=== PATIENT | female | born 1940 | race Caucasian/White ===

== ENCOUNTER 2017-10-13 11:36 | Inpatient (IN) | payer MEDICARE, BC, SELFPAY ==
[2017-10-13] VITALS (7 sets, daily range): BP systolic 125–138; BP diastolic 70–80; PULSE 70–83; RESP 18–22; TEMP 36.8–37.6; O2SAT 97–100; BMI 18.7; BMI 20.7
--- NOTE | 2017-10-13 11:54 | ED.RN ---
PT REPORT PAIN TO HIP/PELVIC AREA. PT WAS CLEAN AND DRY WHEN FOUND ON FLOOR. STATES REMEMBERS GOING TO SLEEP IN HER BED. DOES NOT KNOW WHAT HAPPENED THIS AM. FOUND IN LIVING ROOM
--- NOTE | 2017-10-13 11:55 | RAD_ITS ---
STUDY: X-RAY CHEST REASON FOR EXAM: Female, 76 years old. Chest pain after fall. TECHNIQUE: Two AP portable views of the chest. COMPARISON: May 06, 2015. FINDINGS: Cardiac monitoring leads are present. The lungs are expanded but less expanded than was apparent on the previous study. Mild interstitial thickening is visible in both lungs. There is no demonstrated pleural abnormality. There is borderline cardiomegaly. Normal mediastinum and emily. Normal visualized pulmonary arteries. There is atherosclerotic calcification of the aortic arch with tortuosity. There is demineralization of the osseous structures. Normal visualized ribs, clavicles, and shoulders. There is no demonstrated abnormality of the visualized soft tissue structures of the upper abdomen. RAD/Chest 1 View (Portable) IMPRESSION: No radiographic evidence of acute cardiopulmonary disease. Electronically Signed: Sandy Whitlock MD at 13:57 EDT , Service support ,
--- NOTE | 2017-10-13 11:55 | RAD_ITS ---
STUDY: X-RAY - PELVIS AND LEFT HIP REASON FOR EXAM: Female, 76 years old. Left-sided hip pain after fall. TECHNIQUE: Radiological exam, hip, unilateral, with pelvis when performed; 2 or 3 views. COMPARISON: Prior comparison studies are not available for review at this time. FINDINGS: There is a non-specific bowel gas pattern. Clothing artifact is visible. There is diffuse demineralization of the osseous structures. The sacrum and iliac wings are obscured by bowel gas. There appear to be acute fractures of the left-sided superior and inferior pubic rami. Normal pubic symphysis. Normal bilateral ischial tuberosities. There are osteoarthritic changes of the femoral head with marginal osteophyte formation. Normal acetabulum. Normal hip joint. RAD/Hip 2-3 Views with Pelvis IMPRESSION: Acute fractures of left-sided superior and inferior pubic rami. Electronically Signed: Sandy Whitlock MD at 13:55 EDT , Service support ,
--- NOTE | 2017-10-13 11:55 | RAD_ITS ---
STUDY: X-RAY - LEFT SHOULDER REASON FOR EXAM: Female, 76 years old. Fall. Pain. TECHNIQUE: 2 view(s) of the shoulder. COMPARISON: None. FINDINGS: Normal glenohumeral articulation. There is degenerative arthrosis of the acromioclavicular joint without inferior osseous spur formation. Normal acromion. Normal humeral head and visualized proximal humerus. The soft tissue structures are unremarkable. There is no demonstrated fracture. Normal visualized pulmonary apex. RAD/Shoulder min 2 Views IMPRESSION: No fracture. Acromioclavicular spurring. Electronically Signed: Xander Pizarro MD at 14:15 EDT , Service support ,
--- NOTE | 2017-10-13 11:55 | CT_ITS ---
STUDY: CT BRAIN WITHOUT CONTRAST REASON FOR EXAM: Female, 76 years old. Found on floor. RADIATION DOSAGE (If Supplied By Facility): CTDIvol = ( 44.99 ) mGy, DLP = ( 745.49 ) mGycm TECHNIQUE: Transaxial CT imaging of the brain was performed without administration of intravenous contrast material. Multiplanar reformations are submitted for interpretation. Individualized dose optimization techniques were used for this CT. COMPARISON: CT of the head dated May 16, 2015. FINDINGS: Normal soft tissue structures. Normal calvarium. There is moderate cerebral atrophy with widening of the extra-axial spaces and ventricular dilatation. There are areas of decreased attenuation within the white matter tracts of the supratentorial brain, consistent with microvascular disease changes. Normal basal ganglia and thalami. Normal brainstem. There is mild cerebellar atrophy. There is no intracranial hemorrhage. There is mild atherosclerotic calcification of intracranial arteries. Normal visualized paranasal sinuses. CT/Brain/Head without Contrast IMPRESSION: 1. Chronic involutional changes of the brain. 2. No CT evidence of acute intracranial hemorrhage. Electronically Signed: Sandy Whitlock MD at 13:52 EDT , Service support ,
--- NOTE | 2017-10-13 11:55 | EKG12_ITS ---
Test Reason : FALL Blood Pressure : / mmHG Vent. Rate : 071 BPM Atrial Rate : 071 BPM P-R Int : 120 ms QRS Dur : 082 ms QT Int : 434 ms P-R-T Axes : 059 063 071 degrees QTc Int : 471 ms Normal sinus rhythm Left ventricular hypertrophy with repolarization abnormality Abnormal ECG Confirmed by VALENCIA DAMON, YULIET ([id number]), newspaper photo editor MILY NEVILLE ([id number]) on 10/16/2017 3:49:29 PM Referred By: JOSSIE Confirmed By:YULIET BIRMINGHAM MD
--- NOTE | 2017-10-13 11:56 | CT_ITS ---
STUDY: CT CERVICAL SPINE WITHOUT CONTRAST REASON FOR EXAM: Female, 76 years old. Patient found on floor. RADIATION DOSAGE (If Supplied By Facility): CTDIvol = ( 14.55 ) mGy, DLP = ( 287.98 ) mGycm TECHNIQUE: High resolution transaxial imaging was performed without contrast material. Sagittal and coronal images were reconstructed. Individualized dose optimization techniques were used for this CT. COMPARISON: None FINDINGS: Normal craniovertebral junction. There are degenerative changes of the anterior atlantoaxial articulation. Normal odontoid process. There is straightening of the normal cervical lordosis. The bones appear osteopenic. There is mild decreased height of the C4, C5 and C6 vertebral bodies probably related to mild old compression fractures. C2-3: Normal endplates. Normal disc height and morphology. Normal central canal and intervertebral neuroforamina. C3-4: Normal endplates. Normal disc height and morphology. Normal central canal and intervertebral neuroforamina. C4-5: There is mild anterolisthesis at this level. The disc has normal height. There is severe right-sided neural foraminal narrowing with moderate right-sided facet joint arthropathy. The left neural foramen is patent. There is no significant central acquired canal stenosis. C5-6: There is severe narrowing of the disc space with eburnation of endplates. No foramina are mildly narrowed. There is no significant central acquired canal stenosis. C6-7: Normal endplates. Normal disc height and morphology. Normal central canal and intervertebral neuroforamina. C7-T1: Normal endplates. Normal disc height and morphology. Normal central canal and intervertebral neuroforamina. Visualized lung apices appear to be clear. Paraspinal soft tissues are within normal limits. CT/Spine Cervical without Contras IMPRESSION: 1. No CT evidence of acute compression or displaced fracture cervical spine. 2. Multilevel degenerative disc disease and degenerative arthropathy of the cervical spine, as described. 3. Possible mild old compression fractures of C4, C5 and C6. Electronically Signed: Sandy Whitlock MD at 13:21 EDT , Service support ,
--- NOTE | 2017-10-13 11:59 | ED.VISSUMM ---
- ER Visit Summary Date of Service: 10/13/17 Chief Complaint: Found on floor History of Present Illness: The patient is a 76 F presents after her daughter found her on the floor. It is unknown when she fell. Patient has a history of dementia. She does not recall the fall. Her daughter checks on her daily, she lives alone. When her daughter went to check on her today she was found face down on the living room floor. She complains of left shoulder and left hip pain. EMS was called. She denies chest pain or shortness of breath. She is not on anticoagulants. Physical Examination: Vitals are stable. Patient is afebrile. Alert no acute distress. HEENT exam is unremarkable. No evidence of head trauma Neck is nontender Lungs are clear and equal bilaterally. Heart is regular rate and rhythm. Abdomen is soft nontender nondistended. Extremities left anterior shoulder tenderness with painful range of motion, left anterior hip tenderness with painful range of motion. Skin is warm and dry. No focal neurologic deficit. Alert and oriented ?2 Remainder of exam is unremarkable. Emergency Department Course and Treatment: Patient is given IV fluids, morphine, Zofran. CT head and neck show no acute process. Left hip x-ray shows superior/inferior rami fracture. Left shoulder x-ray shows no fracture. Chest x-ray shows no acute process. EKG is sinus rate is 71. CBC shows a white count of 15.9. Chemistries show sodium 131, potassium 3.3, glucose 110. Urinalysis unremarkable. Troponin 0.022. CK 498. Patient is resting comfortably on reevaluation. Discussed with Dr. Ocampo for admission. Disposition: Admission Impression: Left superior and inferior pubic rami fracture status post fall This note was generated with [employer] software. It may contain incorrect words, spelling, and punctuation that were not noted in review of the chart prior to signing ED Disposition - Plan for ED Patient: Chief Complaint: Fall Referrals: Tien Roldan MD [Primary Care Provider] -
--- NOTE | 2017-10-13 12:02 | ED.DCSUM_ITS ---
- ER Visit Summary Date of Service: 10/13/17 Chief Complaint: Found on floor History of Present Illness: The patient is a 76 F presents after her daughter found her on the floor. It is unknown when she fell. Patient has a history of dementia. She does not recall the fall. Her daughter checks on her daily, she lives alone. When her daughter went to check on her today she was found face down on the living room floor. She complains of left shoulder and left hip pain. EMS was called. She denies chest pain or shortness of breath. She is not on anticoagulants. Physical Examination: Vitals are stable. Patient is afebrile. Alert no acute distress. HEENT exam is unremarkable. No evidence of head trauma Neck is nontender Lungs are clear and equal bilaterally. Heart is regular rate and rhythm. Abdomen is soft nontender nondistended. Extremities left anterior shoulder tenderness with painful range of motion, left anterior hip tenderness with painful range of motion. Skin is warm and dry. No focal neurologic deficit. Alert and oriented ?2 Remainder of exam is unremarkable. Emergency Department Course and Treatment: Patient is given IV fluids, morphine , Zofran. CT head and neck show no acute process. Left hip x-ray shows superior/inferior rami fracture. Left shoulder x-ray shows no fracture. Chest x-ray shows no acute process. EKG is sinus rate is 71. CBC shows a white count of 15.9. Chemistries show sodium 131, potassium 3.3, glucose 110. Urinalysis unremarkable. Troponin 0.022. CK 498. Patient is resting comfortably on reevaluation. Discussed with Dr. Ocampo for admission. Disposition: Admission Impression: Left superior and inferior pubic rami fracture status post fall This note was generated with [employer] software. It may contain incorrect words, spelling, and punctuation that were not noted in review of the chart prior to signing ED Disposition - Plan for ED Patient: Chief Complaint: Fall Referrals: Tien Roldan MD [Primary Care Provider] -
[2017-10-13] MEDS: Morphine 2 MG/ML Syringe IV ×2 (12:15→14:14)
[2017-10-13] MEDS: Ondansetron 4 MG/2 ML Vial IV (12:15)
[2017-10-13 12:18] LABS: Anion Gap 10 (5-15); BUN 10 mg/dL (7-18); BUN/Creat Ratio 16.1 RATIO (10-20); CPK Total, Creatine Kinase 498 U/L (26-192); Calcium,Total 8.9 mg/dL (8.5-10.1); Chloride 100 mmol/L (98-107); Creatinine, Serum 0.62 mg/dL (0.55-1.02); EST Glomerular Filtration Rate 100 mL/min (>60); Est Glom Filt Rate - Afr Amer 120 mL/min (>60); Estimated Creatinine Clearance 42.82 ml/min; Glucose 110 mg/dL (74-106); Potassium 3.3 mmol/L (3.5-5.1); Sodium Level 131 mmol/L (136-145)
[2017-10-13 12:37] LABS: Absolute Lymphocyte Count 0.46 X10^3/ul (0.83-4.51); Absolute Neutrophil Count 14.4 X10^3/uL (2.0-7.7); Basophil# 0.01 X10^3/uL; Basophil% 0.1 % (0-1); Hematocrit 35.6 % (37-47); Hemoglobin 12.7 g/dl (12.0-15.0); Lymphocyte # 0.46 X10^3/ul (4.0); Lymphocyte % 2.9 % (19-41); Mean Corp Hgb Conc 35.7 g/gl (32-36); Mean Corpuscular Volume 89.7 fL (81-99); Mean Platelet Vol. 8.6 fl (6.2-12.0); Monocyte# 0.94 X10^3/uL; Monocyte% 5.9 % (0-10); Neutrophil # 14.36 X10^3/uL (2.7-7.7); Neutrophil % 90.6 % (47-70); Platelet Count 211 K/mm3 (150-450); RBC Distribution Width CV 12.2 % (11.6-14.6); RBC Distribution Width SD 39.7 fl (35.1-43.9); Red Blood Count 3.97 M/mm3 (4.2-5.4); White Blood Count 15.9 K/mm3 (4.4-11.0)
[2017-10-13 12:38] LABS: Differential Indicated SCAN CRITERIA MET; POSITIVE COUNT NO; POSITIVE DIFFERENTIAL YES; POSITIVE MORPHOLOGY NO
[2017-10-13 13:40] LABS: Bacteria 0 SEEN /hpf (None Seen); Mucous, Urine 0 SEEN /hpf (<or=2+); White Blood Cells 0 SEEN /hpf (0-5)
[2017-10-13 13:45] LABS: Color, Urine Yellow (Yellow); Glucose, Dipstick Normal (Normal); Ketone-Dipstick 50 mg/dl (Negative); Leukocyte Esterase-Dipstick Negative /ul (Negative); Nitrite-Dipstick Negative (Negative); Occult Blood-Urine 25 /ul (Negative); Protein-Dipstick 30 mg/dl (Negative); Specific Gravity, Urine 1.015 (1.002-1.030); Urine Bilirubin Dipstick Negative (Negative); Urine Clarity Sl. Cloudy (Clear); Urine Urobilinogen Normal (Normal)
[2017-10-13 13:52] LABS: Red Blood Cells-Urine 0-5 SEEN /hpf (0-5); Squamous Epithelial Cells - UA 0-5 SEEN /hpf (5-10)
--- NOTE | 2017-10-13 14:32 | HP.PCM_ITS ---
Problem List (1) Pelvic fracture Status: Acute Qualifiers: Encounter type: initial encounter Pelvic bone location: pubis Sublocation of pubis: other portion of pubis Fracture type: closed Laterality: left Qualified Code(s): S32.592A - Other specified fracture of left pubis, initial encounter for closed fracture (2) Hypertension Status: Chronic Qualifiers: Hypertension type: essential hypertension Qualified Code(s): I10 - Essential (primary) hypertension (3) Dementia Status: Chronic Qualifiers: Dementia type: unspecified type Dementia behavioral disturbance: with behavioral disturbance Qualified Code(s): F03.91 - Unspecified dementia with behavioral disturbance History of Present Illness Date of Admission: 10/13/17 Chief Complaint: Fall, pelvic and shoulder pain - 1 day The patient is a 76 year old F with past medical history of hypertension, dementia, lives alone, ambulates without assistance. Patient is said to be able to do her basic ADLs but dependent for IADLs. She is able to clean, bathe , do her laundry and clean the house. Her daughters set up a pillbox in a timed pill container which reminds her every day. Her daughters also take care of her bills. She does not drive. One of her daughter picks her up every morning to spend time in her house. She is usually oriented only to self. She does not know what day or time or year she is in. Her moods are controlled with Seroquel. She went over this morning to pick her up, and found her lying on the floor in the britton. Unsure how long she has been lying on the floor. Patient has no memory of what happened prior to that. Nothing is unusual in the britton. She saw her mother yesterday and there were no complaints. No diarrhea or dizziness or palpitations or chest pain or fever or chills recently. She called the EMS and patient was brought to the hospital. Vitals in the ED was stable. Admitting blood work was significant for leukocytosis, anemia, hyponatremia and hypokalemia. X-ray of the pelvis shows fracture of the left superior and inferior rami. Patient complains of pain in the shoulder, x-ray showed a show acromioclavicular spurring with degenerative changes. Past Medical History Past Medical History (Chronic Problems): Chronic Problems Hypertension (Chronic) Dementia (Chronic) Allergies No Known Allergies Allergy (Verified 10/13/17 11:45) Home Medications: Ambulatory Orders Medication Instructions Recorded Metoprolol Tartrate [Lopressor 50 mg PO DAILY 05/06/15 (Beta Usman)] Memantine HCl [Memantine HCl] 10 mg PO DAILY 10/13/17 Quetiapine Fumarate [Seroquel] 50 mg PO DAILY 10/13/17 Surgical History: no surgical history Psychiatric History: No pertinent psych hx [employer] History: No pertinent [employer] history Lives: Alone Smoking Status: Never smoker Alcohol: None Drugs: None - *Family History Maternal History Items: Dementia Paternal History Items: Unknown Review of Systems Constitutional: Reports: Weakness. Denies: Anorexia, Chills, Fever, Weight Change Eyes: Denies: Blurred vision, Cataracts, Conjunctivae Inflammation HEENT: Denies: Difficulty Hearing, Difficulty Swallowing, Head Aches, Hearing Changes, Sinus Congestion, Sinus Drainage, Sore Throat Cardiovascular: Denies: Chest Pain, Claudication, Chest Pressure, Orthopnea, Palpitations, Paroxysmal Noc. Dyspnea Respiratory: Denies: Cough, Hemoptysis, Pleuritic Pain, Shortness of breath at rest, Shortness of breath upon exertion, Sputum production Gastrointestinal: Denies: Abdominal Pain, Constipation, Nausea, Vomiting Genitourinary: Denies: Dysuria, Frequency Musculoskeletal: Denies: Joint Pain, Joint Tenderness Skin: Denies: Rash, Wounds Neurological: Denies: Numbness, Tingling, Focal weakness Psychiatric: Denies: Anxiety, Depression, Homicidal Ideations, Suicidal Ideations Hematologic/ Lymphatic: Denies: Easy Bruising, Easy Bleeding VTE Information - Inpt Only VTE Present on Admission: No VTE Pharm Prophylaxis ordered?: Yes Patient Problems: Active and Suspected Problems Pelvic fracture (Acute) - Physical Exam General: Alert, Cooperative, Confused, - - In pain, morning with her eyes closed , oriented only to self HEENT: Atraumatic, PERRLA, EOMI, Normocephalic Oral: Dry Mucosa Neck: Supple Lungs: Clear to auscultation, Normal air movement Cardiovascular: Regular rate, Regular Rhythm, Normal S1, Normal S2, No murmurs Abdomen: Bowel Sounds Present, Soft, Non Tender, Non-Distended, No Hepato- splenomegaly Extremities: No edema Skin: No rashes, No breakdown Musculoskeletal: Tenderness - Over the pelvic and left shoulder region. No bruises seen Lymphatic: No Cervical, Supraclavicular, or Inguinal Adenopathy Neurological: Cranial nerves II-XII grossly intact, Motor Exam 5/5 strength throughout Psych/Mental Status: Normal Affect, Appropriate Vital Signs Temp Pulse Resp BP Pulse Ox 98.2 F 83 22 H 138/71 H 97 10/13/17 11:37 10/13/17 14:26 10/13/17 14:26 10/13/17 14:26 10/13/17 14:26 Oxygen Delivery Method Room Air Weight: 55.8 kg Body Mass Index (BMI) 18.7 Laboratory Tests Past 24 Hrs 10/13/17 10/13/17 10/13/17 11:50 11:50 12:28 WBC Cancelled 15.9 H Corrected WBC Cancelled RBC Cancelled 3.97 L Hgb Cancelled 12.7 Hct Cancelled 35.6 L MCV Cancelled 89.7 MCH Cancelled 32.0 MCHC Cancelled 35.7 RDW Cancelled 12.2 RDW Differential Cancelled 39.7 Plt Count Cancelled 211 MPV Cancelled 8.6 Immature Gran % (Auto) Cancelled 0.500 Neut % (Auto) Cancelled 90.6 H Lymph % (Auto) Cancelled 2.9 L Schleicher % (Auto) Cancelled 5.9 Eos % (Auto) Cancelled 0.0 Baso % (Auto) Cancelled 0.1 Immature Gran # (Auto) Cancelled Absolute Neuts (auto) Cancelled 14.4 H Absolute Lymphs (auto) Cancelled 0.46 L Absolute Monos (auto) Cancelled Total Counted Cancelled Not Reportable Neutrophils % (Manual) Cancelled Band Neutrophils % Cancelled Lymphocytes % (Manual) Cancelled Monocytes % (Manual) Cancelled Eosinophils % (Manual) Cancelled Basophils % (Manual) Cancelled Metamyelocytes % Cancelled Myelocytes % Cancelled Promyelocytes % Cancelled Blast Cells % Cancelled Plasma Cell % (Manual) Cancelled Other Cells % Cancelled Lymphocytes # Cancelled Nucleated RBCs/100 WBC Cancelled Differential Comment Cancelled Diff Path Review Cancelled Hypersegmented Neuts Cancelled Atypical Lymphocytes Cancelled Reactive Lymphocytes Cancelled Smudge Cells Cancelled Eosinophilia # Cancelled Basophilia # Cancelled Toxic Granulation Cancelled Dohle Bodies Cancelled Carolyn Rods Cancelled Platelet Estimate Cancelled Plt Morphology Comment Cancelled RBC Morphology Cancelled Polychromasia Cancelled Hypochromasia Cancelled Poikilocytosis Cancelled Basophilic Stippling Cancelled Anisocytosis Cancelled Microcytosis Cancelled Macrocytosis Cancelled Spherocytes Cancelled Sickle Cells Cancelled Target Cells Cancelled Tear Drop Cells Cancelled Ovalocytes Cancelled Stomatocytes Cancelled Lombardo-[place] Bodies Cancelled Malone Cells Cancelled Bite Cells Cancelled Acanthocytes (Spur) Cancelled Rouleaux Cancelled Schistocytes Cancelled Sodium 131 L Potassium 3.3 L Chloride 100 Carbon Dioxide 21.0 Anion Gap 10 BUN 10 Creatinine 0.62 Estim Creat Clear Calc 42.82 Est GFR (MDRD) Af Amer 120 Est GFR (MDRD) Non-Af 100 BUN/Creatinine Ratio 16.1 Glucose 110 H Calcium 8.9 Total Creatine Kinase 498 H Troponin I 0.022 Urine Color Urine Clarity Urine pH Ur Specific [place] Urine Protein Urine Glucose (UA) Urine Ketones Urine Occult Blood Urine Nitrite Urine Bilirubin Urine Urobilinogen Ur Leukocyte Esterase Urine RBC Urine WBC Ur Squamous Epith Cells Urine Bacteria Urine Mucus 10/13/17 13:32 WBC Corrected WBC RBC Hgb Hct MCV MCH MCHC RDW RDW Differential Plt Count MPV Immature Gran % (Auto) Neut % (Auto) Lymph % (Auto) Schleicher % (Auto) Eos % (Auto) Baso % (Auto) Immature Gran # (Auto) Absolute Neuts (auto) Absolute Lymphs (auto) Absolute Monos (auto) Total Counted Neutrophils % (Manual) Band Neutrophils % Lymphocytes % (Manual) Monocytes % (Manual) Eosinophils % (Manual) Basophils % (Manual) Metamyelocytes % Myelocytes % Promyelocytes % Blast Cells % Plasma Cell % (Manual) Other Cells % Lymphocytes # Nucleated RBCs/100 WBC Differential Comment Diff Path Review Hypersegmented Neuts Atypical Lymphocytes Reactive Lymphocytes Smudge Cells Eosinophilia # Basophilia # Toxic Granulation Dohle Bodies Carolyn Rods Platelet Estimate Plt Morphology Comment RBC Morphology Polychromasia Hypochromasia Poikilocytosis Basophilic Stippling Anisocytosis Microcytosis Macrocytosis Spherocytes Sickle Cells Target Cells Tear Drop Cells Ovalocytes Stomatocytes Lombardo-[place] Bodies Malone Cells Bite Cells Acanthocytes (Spur) Rouleaux Schistocytes Sodium Potassium Chloride Carbon Dioxide Anion Gap BUN Creatinine Estim Creat Clear Calc Est GFR (MDRD) Af Amer Est GFR (MDRD) Non-Af BUN/Creatinine Ratio Glucose Calcium Total Creatine Kinase Troponin I Urine Color Yellow Urine Clarity Sl. Cloudy Urine pH 8.0 Ur Specific [place] 1.015 Urine Protein 30 H Urine Glucose (UA) Normal Urine Ketones 50 H Urine Occult Blood 25 H Urine Nitrite Negative Urine Bilirubin Negative Urine Urobilinogen Normal Ur Leukocyte Esterase Negative Urine RBC 0-5 SEEN Urine WBC 0 SEEN Ur Squamous Epith Cells 0-5 SEEN Urine Bacteria 0 SEEN Urine Mucus 0 SEEN Assessment/Plan All Active Problems Pelvic fracture (Acute) 76 year old F with past medical history of hypertension, dementia, lives alone, ambulates without assistance. Patient is able to do her BADLs but dependent on her IADLs. She was found this morning by her daughter after a fall, unclear how long she is falling. 1. Acute left superior and inferior pubic rami fracture status post traumatic fall, unclear etiology for the fall, family agreeable to patient going for short -term rehab and possible placement. Plan: Admit to MedSurg, pain control with Tylenol scheduled, oxycodone and morphine IV as needed, PT and OT to evaluate and treat, case management consult to assist with discharge planning 2. Leukocytosis, likely reactive, repeat labs in a.m. 3. Hypokalemia, replaced, recheck in a.m. 4. Hyponatremia, likely due to fluid shifts, recheck in a.m. 5. Hypertension, controlled, continue on metoprolol, monitor vitals closely 6. Dementia with behavioral changes,moderate, patient is on Namenda and Seroquel, will continue same with delirium precautions. 7. DVT prophylaxis with Lovenox subcu 8. CODE STATUS -DNR CCA: Discussed extensively with the patient and her daughters, her daughters note that she had voiced that she would not like to be on machines if her heart or her lungs should stop. They have never gotten around to doing any kind of paperwork. I explained the different kinds of CODE STATUS, chose DNR-CCA and 1 of her daughters works as a health aide in an assisted living facility. They would like assistance from care management to have paperwork filled out for healthcare power of tax attorney. Time spent in discussing was about 20 mins. Code Visit Inpatient E&M: 13063 Init Hosp L3 Procedures: 80025 Advncd Care Plan 30 Min
--- NOTE | 2017-10-13 15:23 | NURSING ---
Pt. daughter- Sirena states that pt did not receive a flu vaccine this yelexa
[2017-10-13] MEDS: 0.9% Normal Saline 1,000 ML 75 ML IV ×2 (17:04→21:06)
[2017-10-13] MEDS: oxyCODONE 5 MG Tablet PO ×2 (17:04→21:03)
[2017-10-13] MEDS: QUEtiapine 25 MG Tablet 50 MG PO (18:12)
[2017-10-13] MEDS: Acetaminophen 500 MG Tablet 1000 MG PO (20:58)
[2017-10-13] MEDS: Memantine Hydrochloride 10 MG Tablet PO (20:58)
[2017-10-13] MEDS: Senna/Docusate Sodium 1 Tablet 2 TABLET PO (21:03)
[2017-10-14] MEDS: oxyCODONE 5 MG Tablet PO ×4 (01:50→23:20)
[2017-10-14 01:57] VITALS: BP 131/79; PULSE 69; RESP 16; TEMP 36.8; O2SAT 100
[2017-10-14] MEDS: Acetaminophen 500 MG Tablet 1000 MG PO ×3 (05:38→23:20)
[2017-10-14] MEDS: Psyllium 1 PACKET PO (06:12)
[2017-10-14 07:40] VITALS: BP 132/74; PULSE 68; RESP 16; TEMP 36.9; O2SAT 98
--- NOTE | 2017-10-14 07:43 | PCM.PN.HOSP ---
Patient Problems: Active and Suspected Problems Pelvic fracture (Acute) Subjective: Patient is a 76-year-old lady admitted following a fall found to have Acute left superior and inferior pubic rami fracture' has been admitted to the regular nursing floor currently undergoing therapy with consultation placed to high school social science teacher to assist with discharge planning Objective: GENERAL: cooperative HEENT: Clear conjunctiva, NECK; supple, normal thyroid, CHEST: Clear to auscultation bilaterally, HEART: Regular S1 S2, ABDOMEN: soft, non-tender, normoactive bowel sounds, RECTAL: deferred EXTREMITIES: No edema, no clubbing, no cyanosis. TRACK LAYER HEAD: Awake; no lateralizing signs. SKIN: No Rash Vitals/I&O's: Vital Signs Temp Pulse Resp BP Pulse Ox 98.3 F 69 16 131/79 H 100 10/14/17 01:57 10/14/17 01:57 10/14/17 01:57 10/14/17 01:57 10/14/17 01:57 Oxygen Delivery Method Room Air Weight: 51.3 kg Body Mass Index (BMI) 20.7 Intake and Output for Last 24 Hours 10/12/17 10/13/17 10/14/17 23:59 23:59 23:59 Intake Total 597 / 597 1091 / 1091 Output Total 500 / 500 650 / 650 Balance 97 / 97 441 / 441 Current Medications Acetaminophen (Tylenol) 1,000 mg PO TID [facility] Last Admin: 10/14/17 05:38 Dose: 1,000 mg Acyclovir (Zovirax) 800 mg PO DAILY [facility] Al Hydroxide/Mg Hydroxide (Mylanta Ii) 30 ml PO Q6H PRN PRN PRN Reason: Gastric burning Bisacodyl (Dulcolax) 5 mg PO DAILY PRN PRN PRN Reason: Constipation Enoxaparin Sodium (Lovenox) 40 mg SC DAILY@1000 YOEL Sodium Chloride () 1,000 mls @ 75 mls/hr IV .[id number] [facility] Stop: 10/14/17 18:04 Last Admin: 10/13/17 21:06 Dose: 75 mls/hr Magnesium Hydroxide (Milk Of Magnesia) 30 ml PO DAILY PRN PRN PRN Reason: Constipation Memantine (Namenda) 10 mg PO BID [facility] Last Admin: 10/13/17 20:58 Dose: 10 mg Metoprolol Succinate (Toprol Xl (Beta Usman)) 50 mg PO DAILY [facility] Morphine Sulfate () 1 mg IV Q4H PRN PRN PRN Reason: SEVERE PAIN (6-10/10) Ondansetron HCl (Zofran) 4 mg IV Q8H PRN PRN PRN Reason: NAUSEA Oxycodone HCl (Oxyir) 5 mg PO Q4H PRN PRN PRN Reason: SEVERE PAIN (6-10/10) Last Admin: 10/14/17 06:11 Dose: 5 mg Psyllium Hydrophilic Mucilloid (Metamucil) 1 packet PO DAILY PRN PRN PRN Reason: CONSTIPATION Last Admin: 10/14/17 06:12 Dose: 1 packet Quetiapine Fumarate (Seroquel) 50 mg PO DAILY [facility] Last Admin: 10/13/17 18:12 Dose: 50 mg Senna/Docusate Sodium (Senokot-S, [place]-Colace) 2 tablet PO BID PRN PRN Reason: Constipation Last Admin: 10/13/17 21:03 Dose: 2 tablet Sodium Chloride () 5 - 30 ml IV UD PRN PRN Reason: SALINE FLUSH Medical Necessity - Tobacco Use Smoking Status: Never smoker Assessment/Plan All Active Problems Pelvic fracture (Acute) Patient is a 76-year-old lady admitted following a fall found to have Acute left superior and inferior pubic rami fracture' has been admitted to the regular nursing floor currently undergoing therapy with consultation placed to high school social science teacher to assist with discharge planning 1. Fall with Acute left superior and inferior pubic rami fracture status to the regular nursing floor requested for PT OT eval and high school social science teacher to assist with discharge planning 2. Hypokalemia corrected per protocol 3. Hyponatremia suspect this is secondary to hypovolemic hyponatremia from dehydration fluids with monitoring of electrolyte 4. Hypertension-blood pressure controlled, home medications continued with dose adjustment as needed 5. Dementia with behavioral changes patient is on Namenda as well as Seroquel 6. Leukocytosis possibly reactive patient does not have any source of infection 7. DVT prophylaxis SC Lovenox Code Status: DNR CCA Disposition to [facility] facility pending insurance approval Code Visit Inpatient E&M: 42450 [facility] Hosp L3
--- NOTE | 2017-10-14 07:53 | PN_ITS ---
Patient Problems: Active and Suspected Problems Pelvic fracture (Acute) Subjective: Patient is a 76-year-old lady admitted following a fall found to have Acute left superior and inferior pubic rami fracture' has been admitted to the regular nursing floor currently undergoing therapy with consultation placed to clinical social worker to assist with discharge planning Objective: GENERAL: cooperative HEENT: Clear conjunctiva, NECK; supple, normal thyroid, CHEST: Clear to auscultation bilaterally, HEART: Regular S1 S2, ABDOMEN: soft, non-tender, normoactive bowel sounds, RECTAL: deferred EXTREMITIES: No edema, no clubbing, no cyanosis. SKULL GRINDER: Awake; no lateralizing signs. SKIN: No Rash Vitals/I&O's: Vital Signs Temp Pulse Resp BP Pulse Ox 98.3 F 69 16 131/79 H 100 10/14/17 01:57 10/14/17 01:57 10/14/17 01:57 10/14/17 01:57 10/14/17 01:57 Oxygen Delivery Method Room Air Weight: 51.3 kg Body Mass Index (BMI) 20.7 Intake and Output for Last 24 Hours 10/12/17 10/13/17 10/14/17 23:59 23:59 23:59 Intake Total 597 / 597 1091 / 1091 Output Total 500 / 500 650 / 650 Balance 97 / 97 441 / 441 Current Medications Acetaminophen (Tylenol) 1,000 mg PO TID [facility] Last Admin: 10/14/17 05:38 Dose: 1,000 mg Acyclovir (Zovirax) 800 mg PO DAILY [facility] Al Hydroxide/Mg Hydroxide (Mylanta Ii) 30 ml PO Q6H PRN PRN PRN Reason: Gastric burning Bisacodyl (Dulcolax) 5 mg PO DAILY PRN PRN PRN Reason: Constipation Enoxaparin Sodium (Lovenox) 40 mg SC DAILY@1000 YOEL Sodium Chloride () 1,000 mls @ 75 mls/hr IV .[id number] [facility] Stop: 10/14/17 18:04 Last Admin: 10/13/17 21:06 Dose: 75 mls/hr Magnesium Hydroxide (Milk Of Magnesia) 30 ml PO DAILY PRN PRN PRN Reason: Constipation Memantine (Namenda) 10 mg PO BID [facility] Last Admin: 10/13/17 20:58 Dose: 10 mg Metoprolol Succinate (Toprol Xl (Beta Usman)) 50 mg PO DAILY [facility] Morphine Sulfate () 1 mg IV Q4H PRN PRN PRN Reason: SEVERE PAIN (6-10/10) Ondansetron HCl (Zofran) 4 mg IV Q8H PRN PRN PRN Reason: NAUSEA Oxycodone HCl (Oxyir) 5 mg PO Q4H PRN PRN PRN Reason: SEVERE PAIN (6-10/10) Last Admin: 10/14/17 06:11 Dose: 5 mg Psyllium Hydrophilic Mucilloid (Metamucil) 1 packet PO DAILY PRN PRN PRN Reason: CONSTIPATION Last Admin: 10/14/17 06:12 Dose: 1 packet Quetiapine Fumarate (Seroquel) 50 mg PO DAILY [facility] Last Admin: 10/13/17 18:12 Dose: 50 mg Senna/Docusate Sodium (Senokot-S, [place]-Colace) 2 tablet PO BID PRN PRN Reason: Constipation Last Admin: 10/13/17 21:03 Dose: 2 tablet Sodium Chloride () 5 - 30 ml IV UD PRN PRN Reason: SALINE FLUSH Medical Necessity - Tobacco Use Smoking Status: Never smoker Assessment/Plan All Active Problems Pelvic fracture (Acute) Patient is a 76-year-old lady admitted following a fall found to have Acute left superior and inferior pubic rami fracture' has been admitted to the regular nursing floor currently undergoing therapy with consultation placed to clinical social worker to assist with discharge planning 1. Fall with Acute left superior and inferior pubic rami fracture status to the regular nursing floor requested for PT OT eval and clinical social worker to assist with discharge planning 2. Hypokalemia corrected per protocol 3. Hyponatremia suspect this is secondary to hypovolemic hyponatremia from dehydration fluids with monitoring of electrolyte 4. Hypertension-blood pressure controlled, home medications continued with dose adjustment as needed 5. Dementia with behavioral changes patient is on Namenda as well as Seroquel 6. Leukocytosis possibly reactive patient does not have any source of infection 7. DVT prophylaxis SC Lovenox Code Status: DNR CCA Disposition to senior living facility pending insurance approval Code Visit Inpatient E&M: 92062 [facility] Hosp L3
[2017-10-14 08:26] LABS: Hematocrit 32.7 % (37-47); Hemoglobin 11.1 g/dl (12.0-15.0); Mean Corp Hgb Conc 33.9 g/gl (32-36); Mean Corpuscular Hgb 31.1 pg (27.0-32.0); Mean Corpuscular Volume 91.6 fL (81-99); Mean Platelet Vol. 8.3 fl (6.2-12.0); Platelet Count 146 K/mm3 (150-450); RBC Distribution Width SD 43.5 fl (35.1-43.9); Red Blood Count 3.57 M/mm3 (4.2-5.4); White Blood Count 8.2 K/mm3 (4.4-11.0)
[2017-10-14 08:27] LABS: Scan Indicated on CBC? Y/N NO
[2017-10-14 09:15] LABS: Anion Gap 8 (5-15); BUN 7 mg/dL (7-18); BUN/Creat Ratio 13.2 RATIO (10-20); Calcium,Total 7.9 mg/dL (8.5-10.1); Chloride 104 mmol/L (98-107); Creatinine, Serum 0.53 mg/dL (0.55-1.02); EST Glomerular Filtration Rate 119 mL/min (>60); Est Glom Filt Rate - Afr Amer 144 mL/min (>60); Estimated Creatinine Clearance 38.44 ml/min; Glucose 98 mg/dL (74-106); Magnesium 1.9 mg/dL (1.6-2.6); Potassium 3.7 mmol/L (3.5-5.1); Sodium Level 135 mmol/L (136-145)
[2017-10-14] MEDS: Senna/Docusate Sodium 1 Tablet 2 TABLET PO (09:20)
[2017-10-14] MEDS: QUEtiapine 25 MG Tablet 50 MG PO (09:20)
[2017-10-14] MEDS: Acyclovir 800 MG Tablet PO (09:20)
[2017-10-14] MEDS: Memantine Hydrochloride 10 MG Tablet PO ×2 (09:20→23:20)
[2017-10-14] MEDS: Enoxaparin 40 MG/0.4 ML Syringe SC (09:20)
[2017-10-14 09:24] VITALS: BP 137/69; PULSE 88
[2017-10-14] MEDS: Metoprolol(XL)Succ 50 MG Tablet PO (09:24)
--- NOTE | 2017-10-14 09:29 | CASEMGMT ---
Addendum entered by Karissa Bliss 10/14/17 10:07: SW spoke w/Tiny in rehab, she will let this SW know if pt is accepted into rehab. SW will continue to follow. FAVIOLA Carmona, DRILLER MULTIPLE SPINDLE Original Note: See assessment. SW spoke w/pt and daughter Sirena in the room in regard to prior level of function and discharge plan. Pt was living alone, family helps with many ADL's such as meals, transportation, meds. Daughter Azalia brings pt to her home every day. It is anticipated pt will need rehab in an inpt setting at discharge. SW reviewed rehab and SNF options w/Sirena and pt. Daughter Sirena states pt is very active and she thinks pt can manage in [facility] rehab, can do 3 hours/therapy per day. SW explained will find out if they have availability and if pt would qualify. SW explained if they do not we would be looking at shelter. SW explained the qualifying stay requirement w/Medicare, and will see w/physician if pt will qualify. Daughter states understanding. SW called [facility], message left regarding rehab, will await a call back. SW will follow up w/pt and daughter once SW speaks w/Tiny. FAVIOLA Carmona, DRILLER MULTIPLE SPINDLE
--- NOTE | 2017-10-14 11:15 | NURSING ---
when removing smith catheter at 0930 this AM, it was noted that pt had tampon in place. when asked about it, she stated that it helps with urinary dribbling. daughter thinks it must have been in place on admission. tampon was removed and pt was given mesh underwear with pad for dribbling.
--- NOTE | 2017-10-14 14:12 | CASEMGMT ---
Social Work Note RYAN received call from Tiny in TCU/Inpatient rehab stating that Dr. Land has looked pt's case over and has denied inpatient rehab for pt. SW in to update pt. Pt is alert and orientated x1. RYAN placed a call to pt's daughter Sirena as Karissa SALMERON had spoke with Sirena earlier regarding discharge plans. RYAN left a message for Sirena informing her that pt was denied for inpatient rehab and asked Sirena if she had another facility that she would like this worker to send referral to. RYAN waiting for call back regarding placement. Plan: TBD, possible placement at discharge pending accepting facility and qualifying three midnight stay for Medicare Leena Borden CLINICAL LABORATORY SERVICE TEACHER, MARKER DELIVERY
[2017-10-14 14:15] VITALS: BP 153/78; PULSE 80; RESP 16; TEMP 36.9; O2SAT 99
[2017-10-14] MEDS: Haloperidol Lactate 5 MG/ML Vial 2 MG IM (16:22)
[2017-10-14 23:04] VITALS: BP 159/97; PULSE 86; RESP 16; TEMP 37.7; O2SAT 99
[2017-10-15 03:32] VITALS: BP 144/97; PULSE 74; RESP 16; TEMP 36.9; O2SAT 98
[2017-10-15 06:42] LABS: Hematocrit 32.9 % (37-47); Hemoglobin 11.3 g/dl (12.0-15.0); Mean Corp Hgb Conc 34.3 g/gl (32-36); Mean Corpuscular Hgb 31.8 pg (27.0-32.0); Mean Corpuscular Volume 92.7 fL (81-99); Mean Platelet Vol. 9.2 fl (6.2-12.0); Platelet Count 174 K/mm3 (150-450); RBC Distribution Width CV 12.5 % (11.6-14.6); RBC Distribution Width SD 41.2 fl (35.1-43.9); Red Blood Count 3.55 M/mm3 (4.2-5.4); White Blood Count 9.4 K/mm3 (4.4-11.0)
[2017-10-15 06:44] LABS: Scan Indicated on CBC? Y/N NO
[2017-10-15] MEDS: Acetaminophen 500 MG Tablet 1000 MG PO ×3 (06:47→22:05)
[2017-10-15] MEDS: oxyCODONE 5 MG Tablet PO (06:48)
[2017-10-15 06:56] LABS: BUN 6 mg/dL (7-18); Creatinine, Serum 0.44 mg/dL (0.55-1.02); Estimated Creatinine Clearance 38.44 ml/min; Glucose 109 mg/dL (74-106)
[2017-10-15 06:57] LABS: Anion Gap 8 (5-15); BUN/Creat Ratio 13.8 RATIO (10-20); Chloride 104 mmol/L (98-107); EST Glomerular Filtration Rate 149 mL/min (>60); Est Glom Filt Rate - Afr Amer 181 mL/min (>60); Potassium 3.2 mmol/L (3.5-5.1); Sodium Level 138 mmol/L (136-145)
[2017-10-15 08:36] VITALS: BP 134/70; PULSE 74; RESP 16; TEMP 37.3; O2SAT 97
--- NOTE | 2017-10-15 08:42 | CASEMGMT ---
Addendum entered by Leena Borden 10/15/17 08:49: SW in to meet with pt and pt's daughter Sirena present. SW informed Sirena that pt was denied inpatient rehab but that this worker placed a call to TCU to check if pt could be accepted on TCU. RYAN informed Sirena that if TCU is unable to accept, this worker will send a referral to [facility]. Sirena states understanding. Original Note: Social Work Note RYAN received message from pt's daughter Sandy. Sandy states that if pt is unable to get into [facility] for rehabilitation then the second choice would be [facility]. Per previous notes, pt was denied inpatient rehab. RYAN placed a call to Tiny in TCU to see if pt could be accepted on TCU. RYAN waiting for call back from Tiny. Plan: TCU vs. [facility] Leena Borden LOG CHAIN WORKER, REPORTS ANALYST
[2017-10-15 10:00] VITALS: PULSE 76
[2017-10-15 10:06] VITALS: PULSE 76
[2017-10-15] MEDS: QUEtiapine 25 MG Tablet 50 MG PO (10:06)
[2017-10-15] MEDS: Metoprolol(XL)Succ 50 MG Tablet PO (10:06)
[2017-10-15] MEDS: Memantine Hydrochloride 10 MG Tablet PO ×2 (10:06→22:05)
[2017-10-15] MEDS: Enoxaparin 40 MG/0.4 ML Syringe SC (10:06)
[2017-10-15] MEDS: Acyclovir 800 MG Tablet PO (10:06)
--- NOTE | 2017-10-15 10:19 | NURSING ---
WEARING OWN KNEE BRACES TO BILAT KNEES.
--- NOTE | 2017-10-15 11:09 | CASEMGMT ---
Addendum entered by Leena Borden 10/15/17 14:38: SW placed a call to pt's daughter Sirena and updated her that TCU has accepted pt and the plan is for pt to discharge tomorrow to TCU. Sirena states understanding. Plan: TCU tomorrow Original Note: Social Work Note SW received message from Tiny in TCU stating that she is able to accept pt. Plan: TCU tomorrow as pt will need one more night to qualify for Medicare three midnight stay Leena Borden COMMERCIAL INSTRUCTOR SUPERVISOR, IMPREGNATION OPERATOR
[2017-10-15 15:35] VITALS: BP 99/62; PULSE 91; RESP 18; TEMP 37.5; O2SAT 96
[2017-10-15] MEDS: Magnesium Hydroxide 30 ML UDC PO (16:53)
--- NOTE | 2017-10-15 20:19 | PCM.PROGNOTE ---
Patient Problems: Active and Suspected Problems Fall (Acute) Subjective: Since seen and examined today, she remains confused, we are awaiting placement in TCU for rehab. Patient does complain of some pelvic pain when she moves and some neck pain which is nonspecific. - Physical Exam General: Alert, No apparent distress, Well developed HEENT: Atraumatic, PERRLA, EOMI, Normocephalic Oral: Moist Mucosa Neck: Supple, No JVD, No Nuchal Rigidity, Trachea Midline, Thyroid Normal Size and Texture Lungs: Clear to auscultation, Normal air movement, No rhonchi, No wheeze, No rales Cardiovascular: Regular rate, Regular Rhythm, Normal S1, Normal S2, No murmurs, No Ectopic Activity, PMI Normal, No rub noted, No Gallop Abdomen: Bowel Sounds Present, Soft, Non Tender, Non-Distended Extremities: No clubbing, No cyanosis, No edema, Capillary Refill Less than 3 Seconds Skin: No rashes, No breakdown Musculoskeletal: No Tenderness to Palpation of Joints or Extremities Neurological: Cranial nerves II-XII grossly intact, Neuro grossly intact, Sensory exam intact to light touch and pain Psych/Mental Status: Flat Affect, - - She is alert but confused Vital Signs Temp Pulse Resp BP Pulse Ox 99.5 F H 91 18 99/62 96 10/15/17 15:35 10/15/17 15:35 10/15/17 15:35 10/15/17 15:35 10/15/17 15:35 Oxygen Delivery Method Room Air Weight: 51.3 kg Body Mass Index (BMI) 20.7 Intake and Output for Last 24 Hours 10/13/17 10/14/17 10/15/17 23:59 23:59 23:59 Intake Total 597 / 597 2430 / 2430 1100 / 1100 Output Total 500 / 500 1400 / 1400 Balance 97 / 97 1030 / 1030 1100 / 1100 Laboratory Tests Past 24 Hrs 10/15/17 10/15/17 05:46 05:46 WBC 9.4 RBC 3.55 L Hgb 11.3 L Hct 32.9 L MCV 92.7 MCH 31.8 MCHC 34.3 RDW 12.5 RDW Differential 41.2 Plt Count 174 MPV 9.2 Sodium 138 Potassium 3.2 L Chloride 104 Carbon Dioxide 26.0 Anion Gap 8 BUN 6 L Creatinine 0.44 L Estim Creat Clear Calc 38.44 Est GFR (MDRD) Af Amer 181 Est GFR (MDRD) Non-Af 149 BUN/Creatinine Ratio 13.8 Glucose 109 H Calcium 8.0 L Magnesium 2.0 Medical Necessity - Tobacco Use Smoking Status: Never smoker Assessment/Plan All Active Problems Pelvic fracture (Acute) Hyponatremia (Acute) Fall (Acute) #1 left superior and inferior pubic rami fracture secondary to fall-we are awaiting placement of the patient in TCU for rehab #2 hypokalemia #3 hyponatremia #4 hypertension #5 dementia with behavioral changes #6 reactive leukocytosis Code Visit Inpatient E&M: 16117 [facility] Hosp L2
[2017-10-15 21:50] VITALS: BP 125/82; PULSE 75; RESP 14; TEMP 37.1; O2SAT 98
[2017-10-16 02:54] VITALS: BP 148/69; PULSE 67; RESP 18; TEMP 36.9; O2SAT 98
[2017-10-16] MEDS: oxyCODONE 5 MG Tablet PO ×3 (03:00→16:50)
[2017-10-16 06:26] LABS: Hematocrit 32.1 % (37-47); Hemoglobin 10.9 g/dl (12.0-15.0); Mean Corpuscular Hgb 31.9 pg (27.0-32.0); Mean Corpuscular Volume 93.9 fL (81-99); Platelet Count 171 K/mm3 (150-450); RBC Distribution Width CV 12.5 % (11.6-14.6); RBC Distribution Width SD 41.8 fl (35.1-43.9); Red Blood Count 3.42 M/mm3 (4.2-5.4); White Blood Count 8.6 K/mm3 (4.4-11.0)
[2017-10-16 06:28] LABS: Anion Gap 4 (5-15); BUN 9 mg/dL (7-18); BUN/Creat Ratio 18.8 RATIO (10-20); Chloride 104 mmol/L (98-107); Creatinine, Serum 0.48 mg/dL (0.55-1.02); EST Glomerular Filtration Rate 134 mL/min (>60); Est Glom Filt Rate - Afr Amer 163 mL/min (>60); Estimated Creatinine Clearance 38.44 ml/min; Glucose 97 mg/dL (74-106); Potassium 3.9 mmol/L (3.5-5.1); Sodium Level 136 mmol/L (136-145)
[2017-10-16 06:31] LABS: Scan Indicated on CBC? Y/N NO
[2017-10-16] MEDS: Acetaminophen 500 MG Tablet 1000 MG PO ×2 (06:36→13:14)
[2017-10-16 07:29] VITALS: BP 129/67; PULSE 68; RESP 16; TEMP 36.8; O2SAT 98
[2017-10-16 09:00] VITALS: PULSE 65
[2017-10-16] MEDS: Enoxaparin 40 MG/0.4 ML Syringe SC (09:00)
[2017-10-16] MEDS: Acyclovir 800 MG Tablet PO (09:00)
[2017-10-16] MEDS: QUEtiapine 25 MG Tablet 50 MG PO (09:00)
[2017-10-16] MEDS: Memantine Hydrochloride 10 MG Tablet PO (09:00)
[2017-10-16] MEDS: Metoprolol(XL)Succ 50 MG Tablet PO (09:00)
[2017-10-16 13:30] VITALS: BP 94/50; PULSE 78; RESP 18; TEMP 36.7; O2SAT 97
--- NOTE | 2017-10-16 15:40 | PCM.TXEXTCAR ---
- Diet 10/13/17 14:29 Diet: Regular Diet Food consistency:: Regular Liquid Consistency:: Regular/Thin - Routine Orders/Code Status Code Status: DNRCC-A - Wound(s) R elbow Wound Type: Abrasion - Problem/Diagnosis (1) Hyponatremia Status: Acute Current Visit: Yes (2) Pelvic fracture Status: Acute Current Visit: Yes (3) Hypertension Status: Chronic Current Visit: Yes (4) Dementia Status: Chronic Current Visit: Yes - Allergies/Procedures Done in Hospital Allergies/Adverse Reactions: Allergies No Known Allergies Allergy (Verified 10/13/17 11:45) Procedures: None - Type of Care/Length of Stay Estimated LOS: Convalescent Care Less Than 30 days Type of Care Needed: Skilled Rehab Potential: Fair Prognosis: Fair - Additional Orders/Day of Discharge H&P will serve as current which was dated: 10/13/17 Day of Discharge: 10/15/17 - Follow Up Care Primary Care Physician: Tien Roldan MD [Primary Care Provider] -
--- NOTE | 2017-10-16 15:41 | CASEMGMT ---
Social Work Note SW spoke with Dr. Lamar who confirms that he will be discharging pt today. Pt is to go to TCU at discharge. Green sheet on pt's chart. Plan: Discharge to TCU today for rehabilitation Leena Borden MSW, GROUNDS MANAGER
--- NOTE | 2017-10-16 16:17 | NURSING ---
Report called to ERIC Palafox on TCU.
--- NOTE | 2017-10-16 18:37 | NURSING ---
pt's dinner arrived- she ate on [facility] and then was d/c'ed to TCU. This RN spoke to Cammy, open tenter operator on TCU and notified her when patient's meal arrived.
--- NOTE | 2017-10-19 17:12 | PCM.DC.SUM ---
Discharge Date and Diagnosis - Problem List Patient Problems: Active and Suspected Problems Fall (Acute) Date of Admission: 10/13/17 Date of Discharge: 10/16/17 - Primary Discharge Diagnosis Active and Suspected Problems #1 left superior and inferior pubic rami fracture secondary to fall #2 hypokalemia #3 hyponatremia #4 dementia with behavioral disturbances #5 hypertension - Secondary Discharge Diagnosis Chronic Problems Hypertension (Chronic) Dementia (Chronic) Alzheimer's disease (Chronic) Behavioral disorder (Chronic) Hospital Course and Treatment Operations: None Procedures: None Summary of Care Provided: The patient is a 76 year old F was seen in the emergency room at [facility] after sustaining a fall at home. Daughter her daughter found her on the floor, patient has a history of dementia. Patient was not able to provide any information. Patient lives alone. Workup in the emergency room included x-rays, x-rays of the left hip area showed superior and inferior rami fracture of the pelvis, patient's labs showed an elevated white count of 15.9, sodium was slightly low 131, potassium was 3.3. Urinalysis was unremarkable, CPK was elevated at 498. Patient was admitted to [place] [address], she was seen by PT and OT, arrangements were made for the patient to be admitted to a [facility] facility for further care at the time of discharge from the hospital, during her hospitalization, patient had periods of agitation which were treated with Haldol. Potassium replacement was given to the patient. On 10/26/17, patient was seen and examined felt to be in stable condition for discharge to TCU. Home Medications: Medications to take at Discharge Acyclovir [Zovirax] 800 mg PO DAILY 10/13/17 Memantine HCl 10 mg PO BID 10/13/17 Metoprolol(XL)Succ [Toprol Xl (Beta Usman)] 50 mg PO DAILY 10/13/17 Quetiapine Fumarate [Seroquel] 50 mg PO QHS 10/13/17 Bisacodyl [Dulcolax] 5 mg PO DAILY PRN PRN tablet 10/16/17 Oxycodone [Oxyir] 5 mg PO Q4H PRN PRN 7 Days #30 tab 10/16/17 Senna/Docusate Sodium [Senokot-S] 2 tablet PO BID PRN tablet 10/16/17 Following Prescrptions Were Given to Patient: Oxycodone [Oxyir] 5 mg PO Q4H PRN PRN 7 Days #30 tab PRN Reason: Severe Pain (-02/05) Primary Care Physician: Tien Roldan MD [Primary Care Provider] - Disposition: [facility] facility Minutes spent on discharge:: 31 Patient Condition:: Stable Medical Necessity - Tobacco Use Smoking Status: Never smoker Meaningful Use Info Meaningful Use Diagnoses (Choose all that apply): None applicable Code Visit Inpatient E&M: 33950 Disch Hosp
--- NOTE | 2017-10-19 17:17 | DS.PCM_ITS ---
Discharge Date and Diagnosis - Problem List Patient Problems: Active and Suspected Problems Fall (Acute) Date of Admission: 10/13/17 Date of Discharge: 10/16/17 - Primary Discharge Diagnosis Active and Suspected Problems #1 left superior and inferior pubic rami fracture secondary to fall #2 hypokalemia #3 hyponatremia #4 dementia with behavioral disturbances #5 hypertension - Secondary Discharge Diagnosis Chronic Problems Hypertension (Chronic) Dementia (Chronic) Alzheimer's disease (Chronic) Behavioral disorder (Chronic) Hospital Course and Treatment Operations: None Procedures: None Summary of Care Provided: The patient is a 76 year old F was seen in the emergency room at [facility] after sustaining a fall at home. Daughter her daughter found her on the floor, patient has a history of dementia. Patient was not able to provide any information. Patient lives alone. Workup in the emergency room included x-rays, x-rays of the left hip area showed superior and inferior rami fracture of the pelvis, patient's labs showed an elevated white count of 15.9, sodium was slightly low 131, potassium was 3.3. Urinalysis was unremarkable, CPK was elevated at 498. Patient was admitted to [place] [id number], she was seen by PT and OT, arrangements were made for the patient to be [place] to a [place] [facility] facility for further care at the time of discharge from the hospital, during her hospitalization, patient had periods of agitation which were treated with Haldol. Potassium replacement was given to the patient. On , patient was seen and examined felt to be in stable condition for discharge to TCU. Home Medications: Medications to take at Discharge Acyclovir [Zovirax] 800 mg PO DAILY 10/13/17 Memantine HCl 10 mg PO BID 10/13/17 Metoprolol(XL)Succ [Toprol Xl (Beta Usman)] 50 mg PO DAILY 10/13/17 Quetiapine Fumarate [Seroquel] 50 mg PO QHS 10/13/17 Bisacodyl [Dulcolax] 5 mg PO DAILY PRN PRN tablet 10/16/17 Oxycodone [Oxyir] 5 mg PO Q4H PRN PRN 7 Days #30 tab 10/16/17 Senna/Docusate Sodium [Senokot-S] 2 tablet PO BID PRN tablet 10/16/17 Following Prescrptions Were Given to Patient: Oxycodone [Oxyir] 5 mg PO Q4H PRN PRN 7 Days #30 tab PRN Reason: Severe Pain (-02/05) Primary Care Physician: Tien Roldan MD [Primary Care Provider] - Disposition: Retirement facility Minutes spent on discharge:: 31 Patient Condition:: Stable Medical Necessity - Tobacco Use Smoking Status: Never smoker Meaningful Use Info Meaningful Use Diagnoses (Choose all that apply): None applicable Code Visit Inpatient E&M: 57399 Disch Hosp
== END 2017-10-16 18:31 | disposition skilled nursing facility (03) | DRG 536 ==
LOC: ED 12:18 → MS3 14:50
PROVIDERS: Internal Medicine; Admitting Provider Internal Medicine; Emergency Provider Emergency Medicine; Family Provider Family Medicine; PCP Family Medicine; Visit Provider Internal Medicine
DX: S32.512A Fracture of superior rim of left pubis, initial encounter for closed fracture (principal); E87.1 Hypo-osmolality and hyponatremia; F03.91 Unspecified dementia, unspecified severity, with behavioral disturbance; S32.592A Other specified fracture of left pubis, initial encounter for closed fracture; W19.XXXA Unspecified fall, initial encounter; Y92.019 Unspecified place in single-family (private) house as the place of occurrence of the external cause; I10 Essential (primary) hypertension; E87.6 Hypokalemia; Z66 Do not resuscitate; D72.829 Elevated white blood cell count, unspecified
CPT/HCPCS: 36415; 51702; 70450; 71045; 72125; 73030; 73502; 80048; 81001; 82550; 83735; 84484; 85025; 85027; 93005; 97116; 97162; 97166; 97530; 97535; 99285; J7030; J7040; A4216; J2405

== ENCOUNTER 2017-10-16 18:42 | Inpatient (IN) | payer MEDICARE, BC, SELFPAY ==
[2017-10-16 18:48] VITALS: BP 127/68; PULSE 66; RESP 18; TEMP 36.5; O2SAT 93
--- NOTE | 2017-10-16 18:51 | NURSING ---
Pt arrived from [facility] at 18:40 via wheelchair, daughter here at time of transfer
[2017-10-16 20:03] VITALS: BMI 21.5
--- NOTE | 2017-10-16 21:29 | PCM.HP.STD ---
Problem List (1) Fall Status: Acute (2) Alzheimer's disease Status: Chronic (3) Behavioral disorder Status: Chronic (4) Pelvic fracture Status: Acute Qualifiers: (5) Hypertension Status: Chronic Qualifiers: (6) Hyponatremia Status: Acute History of Present Illness Date of Admission: 10/16/17 Chief Complaint: Here for rehabilitation, strengthening, prior to placement in shelter care facility. The patient is a 76 year old Female with below past medical history presented to [facility] Emergency Department 10/13/2017 after being found on floor. 10/13/2017 CT brain chronic involutional changes of brain. 10/13/2017 Chest X-ray negative. 10/13/2017 EKG normal sinus rhythm, LVH with repolarization abnormality. 10/13/2017 X-ray pelvis, left hip shows left superior and inferior rami fractures. 10/13/2017 X-ray left shoulder AC spurring. CT Cervical spine shows cervical disc disease, mild old compression fractures C4, C5, C6. Daughter found patient on floor. Lives alone, found face down in living room. IV Fluids, Morphine, Zofran given. WBC 15.9, Sodium 131, K 3.3, CK 498. 10/13/2017 Admit to Hospital. Moods controlled with Seroquel. Tylenol, Oxycodone, Morphine PRN pain. PT/OT consulted. Replace potassium. 10/16/2017 Admit to TCU for rehabilitation, strengthening, prior to placement in shelter care facility. Past Medical History Past Medical History (Chronic Problems): Chronic Problems Hypertension (Chronic) Dementia (Chronic) Alzheimer's disease (Chronic) Behavioral disorder (Chronic) Allergies No Known Allergies Allergy (Verified 10/13/17 11:45) Home Medications: Ambulatory Orders Medication Instructions Recorded Acyclovir [Zovirax] 800 mg PO DAILY 10/13/17 Memantine HCl 10 mg PO BID 10/13/17 Metoprolol(XL)Succ [Toprol Xl 50 mg PO DAILY 10/13/17 (Beta Usman)] Quetiapine Fumarate [Seroquel] 50 mg PO QHS 10/13/17 Bisacodyl [Dulcolax] 5 mg PO DAILY PRN PRN tablet 10/16/17 Oxycodone [Oxyir] 5 mg PO Q4H PRN PRN 7 Days #30 tab 10/16/17 Senna/Docusate Sodium [Senokot-S] 2 tablet PO BID PRN tablet 10/16/17 Surgical History: no surgical history Psychiatric History: No pertinent psych hx MANAGER AGRICULTURE History: No pertinent MANAGER AGRICULTURE history Lives: Alone Smoking Status: Never smoker Tobacco Use: Non-smoker Alcohol: None Drugs: None - *Family History Maternal History Items: Dementia Paternal History Items: Unknown Review of Systems Constitutional: Denies: Chills, Fever, Weight Change HEENT: Denies: Head Aches, Sinus Congestion, Sinus Drainage Cardiovascular: Denies: Chest Pain, Palpitations Respiratory: Denies: Cough, Shortness of breath at rest, Sputum production Gastrointestinal: Denies: Abdominal Pain, Nausea, Vomiting Genitourinary: Denies: Dysuria Musculoskeletal: Denies: Joint Pain, Joint Tenderness Skin: Denies: Rash, Wounds Neurological: Denies: Numbness, Tingling, Focal weakness Psychiatric: Denies: Anxiety, Depression, Homicidal Ideations, Suicidal Ideations Hematologic/ Lymphatic: Denies: Easy Bruising, Easy Bleeding VTE Information - Inpt Only VTE Present on Admission: No VTE Mechan Device Prophylaxis: Knee High POLI Hose VTE Pharm Prophylaxis ordered?: Yes Patient Problems: Active and Suspected Problems Fall (Acute) - Physical Exam General: Alert, Oriented x3, Cooperative HEENT: Atraumatic, PERRLA, EOMI, Normocephalic Neck: Supple, No JVD, Negative Carotid Bruits Lungs: Clear to auscultation, Normal air movement Cardiovascular: Regular rate, No murmurs Abdomen: Bowel Sounds Present, Soft, Non Tender Extremities: No edema, Capillary Refill Less than 3 Seconds Skin: No rashes, No breakdown Musculoskeletal: No Tenderness to Palpation of Joints or Extremities Neurological: Cranial nerves II-XII grossly intact Psych/Mental Status: Normal Affect, Appropriate Vital Signs Temp Pulse Resp BP Pulse Ox 97.7 F L 66 18 127/68 H 93 10/16/17 18:48 10/16/17 18:48 10/16/17 18:48 10/16/17 18:48 10/16/17 18:48 Oxygen Delivery Method Room Air Weight: 51.71 kg Body Mass Index (BMI) 21.5 Assessment/Plan All Active Problems Pelvic fracture (Acute) Hyponatremia (Acute) Fall (Acute) 76 year old female with below past medical history significant for Alzheimer's Disease, hospitalized for fall, acute pelvic fracture, admitted to TCU with debility, here for rehabilitation, strengthening, prior to rodent exterminator care placement. Debility - PT/OT. Pain - Tylenol 1000MG PO Q8H PRN mild pain, Oxycodone 5MG Q4H PRN severe pain. Bowel - Miralax 17GM daily, Senna/colace 1 tablet BID, Dulcolax 10MG PO daily PRN. Pneumonia vaccination - Administer Prevnar 13 and/or Pneumovax 23 as necessary. DVT prophylaxis - Lovenox 40MG SC daily. Herpes Simplex suppression - Acyclovir 800MG daily, will clarify with daughter why resident is taking this. Alzheimer's Disease - Memantine 10MG twice daily. Hypertension - Metoprolol succinate 50MG daily. Behavioral disorder - Start Gradual Dose Reduction, Seroquel 25MG QHS x 7 days, then 12.5MG QHS x 7 days, then stop, I suspect the Seroquel is help resident sleep. Insomnia - Melatonin 10MG QHS PRN, can take over once the lower doses of Seroquel become ineffective for sleep or sundowning.
--- NOTE | 2017-10-16 21:39 | HP.PCM_ITS ---
Problem List (1) Fall Status: Acute (2) Alzheimer's disease Status: Chronic (3) Behavioral disorder Status: Chronic (4) Pelvic fracture Status: Acute Qualifiers: (5) Hypertension Status: Chronic Qualifiers: (6) Hyponatremia Status: Acute History of Present Illness Date of Admission: 10/16/17 Chief Complaint: Here for rehabilitation, strengthening, prior to placement in custodial care facility. The patient is a 76 year old Female with below past medical history presented to [facility] Emergency Department 10/13/2017 after being found on floor. 10/13/2017 CT brain chronic involutional changes of brain. 10/13/2017 Chest X-ray negative. 10/13/2017 EKG normal sinus rhythm, LVH with repolarization abnormality. 10/13/2017 X-ray pelvis, left hip shows left superior and inferior rami fractures. 10/13/2017 X-ray left shoulder AC spurring. CT Cervical spine shows cervical disc disease, mild old compression fractures C4, C5, C6. Daughter found patient on floor. Lives alone, found face down in living room. IV Fluids, Morphine, Zofran given. WBC 15.9, Sodium 131, K 3.3, CK 498. 10/13/2017 Admit to Hospital. Moods controlled with Seroquel. Tylenol, Oxycodone, Morphine PRN pain. PT/OT consulted. Replace potassium. 10/16/2017 Admit to TCU for rehabilitation, strengthening, prior to placement in custodial care facility. Past Medical History Past Medical History (Chronic Problems): Chronic Problems Hypertension (Chronic) Dementia (Chronic) Alzheimer's disease (Chronic) Behavioral disorder (Chronic) Allergies No Known Allergies Allergy (Verified 10/13/17 11:45) Home Medications: Ambulatory Orders Medication Instructions Recorded Acyclovir [Zovirax] 800 mg PO DAILY 10/13/17 Memantine HCl 10 mg PO BID 10/13/17 Metoprolol(XL)Succ [Toprol Xl 50 mg PO DAILY 10/13/17 (Beta Usman)] Quetiapine Fumarate [Seroquel] 50 mg PO QHS 10/13/17 Bisacodyl [Dulcolax] 5 mg PO DAILY PRN PRN tablet 10/16/17 Oxycodone [Oxyir] 5 mg PO Q4H PRN PRN 7 Days #30 tab 10/16/17 Senna/Docusate Sodium [Senokot-S] 2 tablet PO BID PRN tablet 10/16/17 Surgical History: no surgical history Psychiatric History: No pertinent psych hx 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 Lives: Alone Smoking Status: Never smoker Tobacco Use: Non-smoker Alcohol: None Drugs: None - *Family History Maternal History Items: Dementia Paternal History Items: Unknown Review of Systems Constitutional: Denies: Chills, Fever, Weight Change HEENT: Denies: Head Aches, Sinus Congestion, Sinus Drainage Cardiovascular: Denies: Chest Pain, Palpitations Respiratory: Denies: Cough, Shortness of breath at rest, Sputum production Gastrointestinal: Denies: Abdominal Pain, Nausea, Vomiting Genitourinary: Denies: Dysuria Musculoskeletal: Denies: Joint Pain, Joint Tenderness Skin: Denies: Rash, Wounds Neurological: Denies: Numbness, Tingling, Focal weakness Psychiatric: Denies: Anxiety, Depression, Homicidal Ideations, Suicidal Ideations Hematologic/ Lymphatic: Denies: Easy Bruising, Easy Bleeding VTE Information - Inpt Only VTE Present on Admission: No VTE Mechan Device Prophylaxis: Knee High POLI Hose VTE Pharm Prophylaxis ordered?: Yes Patient Problems: Active and Suspected Problems Fall (Acute) - Physical Exam General: Alert, Oriented x3, Cooperative HEENT: Atraumatic, PERRLA, EOMI, Normocephalic Neck: Supple, No JVD, Negative Carotid Bruits Lungs: Clear to auscultation, Normal air movement Cardiovascular: Regular rate, No murmurs Abdomen: Bowel Sounds Present, Soft, Non Tender Extremities: No edema, Capillary Refill Less than 3 Seconds Skin: No rashes, No breakdown Musculoskeletal: No Tenderness to Palpation of Joints or Extremities Neurological: Cranial nerves II-XII grossly intact Psych/Mental Status: Normal Affect, Appropriate Vital Signs Temp Pulse Resp BP Pulse Ox 97.7 F L 66 18 127/68 H 93 10/16/17 18:48 10/16/17 18:48 10/16/17 18:48 10/16/17 18:48 10/16/17 18:48 Oxygen Delivery Method Room Air Weight: 51.71 kg Body Mass Index (BMI) 21.5 Assessment/Plan All Active Problems Pelvic fracture (Acute) Hyponatremia (Acute) Fall (Acute) 76 year old female with below past medical history significant for Alzheimer's Disease, hospitalized for fall, acute pelvic fracture, admitted to TCU with debility, here for rehabilitation, strengthening, prior to manager long term care care placement. * Debility - PT/OT. * Pain - Tylenol 1000MG PO Q8H PRN mild pain, Oxycodone 5MG Q4H PRN severe pain. * Bowel - Miralax 17GM daily, Senna/colace 1 tablet BID, Dulcolax 10MG PO daily PRN. * Pneumonia vaccination - Administer Prevnar 13 and/or Pneumovax 23 as necessary. * DVT prophylaxis - Lovenox 40MG SC daily. * Herpes Simplex suppression - Acyclovir 800MG daily, will clarify with daughter why resident is taking this. * Alzheimer's Disease - Memantine 10MG twice daily. * Hypertension - Metoprolol succinate 50MG daily. * Behavioral disorder - Start Gradual Dose Reduction, Seroquel 25MG QHS x 7 days , then 12.5MG QHS x 7 days, then stop, I suspect the Seroquel is help resident sleep. * Insomnia - Melatonin 10MG QHS PRN, can take over once the lower doses of Seroquel become ineffective for sleep or sundowning.
[2017-10-16] MEDS: QUEtiapine 25 MG Tablet 50 MG PO (21:55)
[2017-10-17 01:47] VITALS: BMI 21.5
[2017-10-17] MEDS: oxyCODONE 5 MG Tablet PO ×4 (02:42→16:48)
[2017-10-17 04:01] VITALS: BP 144/84; PULSE 88
[2017-10-17] MEDS: Acyclovir 800 MG Tablet PO (04:01)
[2017-10-17] MEDS: Memantine Hydrochloride 10 MG Tablet PO ×2 (04:01→16:48)
[2017-10-17] MEDS: Metoprolol(XL)Succ 50 MG Tablet PO (04:01)
[2017-10-17] MEDS: Senna/Docusate Sodium 1 Tablet PO ×2 (04:02→16:48)
[2017-10-17] MEDS: Polyethylene Glycol 3350 17 GM PACKET PO (04:02)
[2017-10-17] MEDS: Enoxaparin 40 MG/0.4 ML Syringe SC (04:05)
[2017-10-17] MEDS: Tuberculin,Purif.prot.deriv. 50 TU/ML Vial 5 ML ID (12:43)
--- NOTE | 2017-10-17 14:09 | CASEMGMT ---
Social Work See attached assessment for further details. Telephone call to resident daughter, Azalia. Azalia confirming resident discharge plan of returning home, but that plan is for resident to now have 24hr set up within the home. Azalia planning to contact audio visual aide agencies in the area to set up home health care. This social sciences chair providing Azalia with list of audio visual aide agencies within the area. Support given. Will continue to follow. Katelyn FRASER, WHEEL SHOP SUPERVISOR
[2017-10-17 15:49] VITALS: BP 133/69; PULSE 82; RESP 18; TEMP 37.1; O2SAT 95
[2017-10-17] MEDS: QUEtiapine 25 MG Tablet PO (20:39)
[2017-10-17] MEDS: Acetaminophen 500 MG Tablet 1000 MG PO (20:39)
[2017-10-18] MEDS: oxyCODONE 5 MG Tablet PO ×3 (04:52→18:08)
[2017-10-18] MEDS: Acetaminophen 500 MG Tablet 1000 MG PO ×3 (04:53→23:31)
[2017-10-18 04:54] VITALS: BP 149/89; PULSE 94
[2017-10-18] MEDS: Senna/Docusate Sodium 1 Tablet PO ×2 (04:54→18:05)
[2017-10-18] MEDS: Acyclovir 800 MG Tablet PO (04:54)
[2017-10-18] MEDS: Metoprolol(XL)Succ 50 MG Tablet PO (04:54)
[2017-10-18] MEDS: Memantine Hydrochloride 10 MG Tablet PO ×2 (04:55→18:05)
[2017-10-18] MEDS: Polyethylene Glycol 3350 17 GM PACKET PO (04:56)
[2017-10-18] MEDS: Enoxaparin 40 MG/0.4 ML Syringe SC (04:59)
[2017-10-18 06:09] LABS: Absolute Lymphocyte Count 0.74 X10^3/ul (0.83-4.51); Absolute Neutrophil Count 5.1 X10^3/uL (2.0-7.7); Basophil# 0.02 X10^3/uL; Basophil% 0.3 % (0-1); Eosinophil# 0.17 X10^3/uL; Eosinophils% 2.4 % (0-5); Hematocrit 30.9 % (37-47); Hemoglobin 10.3 g/dl (12.0-15.0); Lymphocyte # 0.74 X10^3/ul (4.0); Lymphocyte % 10.5 % (19-41); Mean Corp Hgb Conc 33.3 g/gl (32-36); Mean Corpuscular Hgb 31.8 pg (27.0-32.0); Mean Corpuscular Volume 95.4 fL (81-99); Mean Platelet Vol. 8.5 fl (6.2-12.0); Monocyte% 14.2 % (0-10); Neutrophil # 5.08 X10^3/uL (2.7-7.7); Neutrophil % 72.3 % (47-70); Platelet Count 215 K/mm3 (150-450); RBC Distribution Width CV 12.6 % (11.6-14.6); RBC Distribution Width SD 42.3 fl (35.1-43.9); Red Blood Count 3.24 M/mm3 (4.2-5.4)
[2017-10-18 06:14] LABS: POSITIVE COUNT NO; POSITIVE DIFFERENTIAL NO; POSITIVE MORPHOLOGY NO
[2017-10-18 06:31] LABS: Anion Gap 7 (5-15); BUN 14 mg/dL (7-18); Calcium,Total 8.4 mg/dL (8.5-10.1); Chloride 103 mmol/L (98-107); Creatinine, Serum 0.56 mg/dL (0.55-1.02); EST Glomerular Filtration Rate 112 mL/min (>60); Est Glom Filt Rate - Afr Amer 136 mL/min (>60); Estimated Creatinine Clearance 36.68 ml/min; Glucose 102 mg/dL (74-106); Potassium 3.8 mmol/L (3.5-5.1); Sodium Level 139 mmol/L (136-145)
--- NOTE | 2017-10-18 10:48 | PCM.PN.RX ---
<Gio Ace D - Last Filed: 10/18/17 10:48> Progress Note - Pharmacy Subjective: TCU Admission Objective: Allergies No Known Allergies Allergy (Verified 10/13/17 11:45) Current Medications Generic Name Dose Route Start Last Admin Trade Name Freq PRN Reason Stop Dose Admin Acetaminophen 1,000 mg 10/17/17 22:00 10/18/17 04:53 Tylenol PO 1,000 mg Q8H YOEL Administration Acyclovir 800 mg 10/17/17 06:00 10/18/17 04:54 Zovirax PO 800 mg DAILY YOEL Administration Bisacodyl 10 mg 10/16/17 21:56 Dulcolax PO DAILY PRN PRN Constipation Enoxaparin Sodium 40 mg 10/17/17 06:00 10/18/17 04:59 Lovenox SC 40 mg DAILY@0600 YOEL Administration Melatonin 10 mg 10/16/17 21:54 Melatonin PO QHS PRN PRN INSOMNIA Memantine 10 mg 10/17/17 06:00 10/18/17 04:55 Namenda PO 10 mg BID YOEL Administration Metoprolol Succinate 50 mg 10/17/17 06:00 10/18/17 04:54 Toprol Xl (Beta Usman) PO 50 mg DAILY YOEL Administration Nutritional Formula (Lactose Free) 120 ml 10/17/17 06:00 10/18/17 04:53 Ensure Enlive PO 120 ml 4X/DAY YOEL Administration Oxycodone HCl 5 mg 10/16/17 19:37 10/18/17 09:49 Oxyir PO 5 mg Q4H PRN PRN Administration SEVERE PAIN (6-10/10) Polyethylene Glycol 17 gm 10/17/17 06:00 10/18/17 04:56 Miralax PO 17 gm DAILY YOEL Administration Quetiapine Fumarate 25 mg 10/16/17 22:00 10/17/17 20:39 Seroquel PO 10/23/17 22:01 25 mg QHS YOEL Administration Quetiapine Fumarate 12.5 mg 10/24/17 22:00 Seroquel PO 10/31/17 22:01 QHS [facility] Senna/Docusate Sodium 1 tablet 10/17/17 06:00 10/18/17 04:54 Senokot-S, [place]-Colace PO 1 tablet BID [facility] Administration Tuberculin PPD 5 tu 10/24/17 10:00 Tubersol, Aplisol, Ppd ID 10/24/17 10:01 X1 ONE Problem List Fall (Acute) Alzheimer's disease (Chronic) Behavioral disorder (Chronic) Vital Signs Temp Pulse Resp BP Pulse Ox 98.8 F 94 18 149/89 H 95 10/17/17 15:49 10/18/17 04:54 10/17/17 15:49 10/18/17 04:54 10/17/17 15:49 Oxygen Delivery Method Room Air Weight: 51.71 kg Body Mass Index (BMI) 21.5 Sodium 139 mmol/L (136-145) 10/18/17 05:50 Potassium 3.8 mmol/L (3.5-5.1) 10/18/17 05:50 Chloride 103 mmol/L (98-107) 10/18/17 05:50 Carbon Dioxide 29.0 mmol/L (21.0-32.0) 10/18/17 05:50 Anion Gap 7 (5-15) 10/18/17 05:50 BUN 14 mg/dL (7-18) 10/18/17 05:50 Creatinine 0.56 mg/dL (0.55-1.02) 10/18/17 05:50 Est GFR (MDRD) Af Amer 136 mL/min (>60) 10/18/17 05:50 Est GFR (MDRD) Non-Af 112 mL/min (>60) 10/18/17 05:50 BUN/Creatinine Ratio 25.0 RATIO (10-20) H 10/18/17 05:50 Glucose 102 mg/dL (74-106) 10/18/17 05:50 Assessment/Plan: 1) Pain APAP scheduled, oxycodone for severe pain. Continue to monitor prn medication use, daily pain scores. 2) HTN Metoprolol XL daily. Continue to monitor BP/HR. 3) DVT PPx Enoxaparin daily. Continue to monitor s/s bleeding/clot. 4) Hx of Herpes Acyclovir daily. Continue to monitor for symptoms. 5) Alzheimer's Memantine twice daily. Continue to monitor clinically. 6) Insomnia Melatonin at HS. Continue to monitor for insomnia. Psychotropic Medications: 7) Behavior Quetiapine at HS. Tapering off after 10/31. Unnecessary Medications: None Bowel Regimen: 8) Senna/s, PEG, prn bisacodyl. Continue to monitor prn medication use, for constipation/diarrhea. Date of Note:: 10/18/17 - Provider Comments Provider responsibility: Provider responsible to enter orders to implement recommendations <Tanner Fong Chi - Last Filed: 10/18/17 14:04> Progress Note - Pharmacy Subjective: [] Objective: Allergies No Known Allergies Allergy (Verified 10/13/17 11:45) Current Medications Generic Name Dose Route Start Last Admin Trade Name Freq PRN Reason Stop Dose Admin Acetaminophen 1,000 mg 10/17/17 22:00 10/18/17 13:19 Tylenol PO 1,000 mg Q8H YOEL Administration Acyclovir 800 mg 10/17/17 06:00 10/18/17 04:54 Zovirax PO 800 mg DAILY YOEL Administration Bisacodyl 10 mg 10/16/17 21:56 Dulcolax PO DAILY PRN PRN Constipation Enoxaparin Sodium 40 mg 10/17/17 06:00 10/18/17 04:59 Lovenox SC 40 mg DAILY@0600 YOEL Administration Melatonin 10 mg 10/16/17 21:54 Melatonin PO QHS PRN PRN INSOMNIA Memantine 10 mg 10/17/17 06:00 10/18/17 04:55 Namenda PO 10 mg BID YOEL Administration Metoprolol Succinate 50 mg 10/17/17 06:00 10/18/17 04:54 Toprol Xl (Beta Usman) PO 50 mg DAILY YOEL Administration Nutritional Formula (Lactose Free) 120 ml 10/18/17 12:48 Ensure Enlive PO 4X/DAY [facility] Oxycodone HCl 5 mg 10/16/17 19:37 10/18/17 09:49 Oxyir PO 5 mg Q4H PRN PRN Administration SEVERE PAIN (6-10/10) Polyethylene Glycol 17 gm 10/17/17 06:00 10/18/17 04:56 Miralax PO 17 gm DAILY YOEL Administration Quetiapine Fumarate 25 mg 10/16/17 22:00 10/17/17 20:39 Seroquel PO 10/23/17 22:01 25 mg QHS YOEL Administration Quetiapine Fumarate 12.5 mg 10/24/17 22:00 Seroquel PO 10/31/17 22:01 QHS YOEL Senna/Docusate Sodium 1 tablet 10/17/17 06:00 10/18/17 04:54 Senokot-S, [place]-Colace PO 1 tablet BID YOEL Administration Tuberculin PPD 5 tu 10/24/17 10:00 Tubersol, Aplisol, Ppd ID 10/24/17 10:01 X1 ONE Problem List Fall (Acute) Alzheimer's disease (Chronic) Behavioral disorder (Chronic) Vital Signs Temp Pulse Resp BP Pulse Ox 98.8 F 94 18 149/89 H 95 10/17/17 15:49 10/18/17 04:54 10/17/17 15:49 10/18/17 04:54 10/17/17 15:49 Oxygen Delivery Method Room Air Weight: 51.71 kg Body Mass Index (BMI) 21.5 Sodium 139 mmol/L (136-145) 10/18/17 05:50 Potassium 3.8 mmol/L (3.5-5.1) 10/18/17 05:50 Chloride 103 mmol/L (98-107) 10/18/17 05:50 Carbon Dioxide 29.0 mmol/L (21.0-32.0) 10/18/17 05:50 Anion Gap 7 (5-15) 10/18/17 05:50 BUN 14 mg/dL (7-18) 10/18/17 05:50 Creatinine 0.56 mg/dL (0.55-1.02) 10/18/17 05:50 Est GFR (MDRD) Af Amer 136 mL/min (>60) 10/18/17 05:50 Est GFR (MDRD) Non-Af 112 mL/min (>60) 10/18/17 05:50 BUN/Creatinine Ratio 25.0 RATIO (10-20) H 10/18/17 05:50 Glucose 102 mg/dL (74-106) 10/18/17 05:50 Assessment/Plan: Psychotropic Medications: Unnecessary Medications: Bowel Regimen: - Provider Comments Provider responsibility: Provider responsible to enter orders to implement recommendations Provider Comments to Recommendations by Pharmacy: Agree
--- NOTE | 2017-10-18 10:59 | PHA.CONS_ITS ---
<Gio Ace D - Last Filed: 10/18/17 10:48> Progress Note - Pharmacy Subjective: TCU Admission Objective: Allergies No Known Allergies Allergy (Verified 10/13/17 11:45) Current Medications Generic Name Dose Route Start Last Admin Trade Name Freq PRN Reason Stop Dose Admin Acetaminophen 1,000 mg 10/17/17 22:00 10/18/17 04:53 Tylenol PO 1,000 mg Q8H YOEL Administration Acyclovir 800 mg 10/17/17 06:00 10/18/17 04:54 Zovirax PO 800 mg DAILY YOEL Administration Bisacodyl 10 mg 10/16/17 21:56 Dulcolax PO DAILY PRN PRN Constipation Enoxaparin Sodium 40 mg 10/17/17 06:00 10/18/17 04:59 Lovenox SC 40 mg DAILY@0600 YOEL Administration Melatonin 10 mg 10/16/17 21:54 Melatonin PO QHS PRN PRN INSOMNIA Memantine 10 mg 10/17/17 06:00 10/18/17 04:55 Namenda PO 10 mg BID YOEL Administration Metoprolol Succinate 50 mg 10/17/17 06:00 10/18/17 04:54 Toprol Xl (Beta Usman) PO 50 mg DAILY YOEL Administration Nutritional Formula (Lactose Free) 120 ml 10/17/17 06:00 10/18/17 04:53 Ensure Enlive PO 120 ml 4X/DAY YOEL Administration Oxycodone HCl 5 mg 10/16/17 19:37 10/18/17 09:49 Oxyir PO 5 mg Q4H PRN PRN Administration SEVERE PAIN (6-10/10) Polyethylene Glycol 17 gm 10/17/17 06:00 10/18/17 04:56 Miralax PO 17 gm DAILY YOEL Administration Quetiapine Fumarate 25 mg 10/16/17 22:00 10/17/17 20:39 Seroquel PO 10/23/17 22:01 25 mg QHS YOEL Administration Quetiapine Fumarate 12.5 mg 10/24/17 22:00 Seroquel PO 10/31/17 22:01 QHS [facility] Senna/Docusate Sodium 1 tablet 10/17/17 06:00 10/18/17 04:54 Senokot-S, [place]-Colace PO 1 tablet BID [facility] Administration Tuberculin PPD 5 tu 10/24/17 10:00 Tubersol, Aplisol, Ppd ID 10/24/17 10:01 X1 ONE Problem List Fall (Acute) Alzheimer's disease (Chronic) Behavioral disorder (Chronic) Vital Signs Temp Pulse Resp BP Pulse Ox 98.8 F 94 18 149/89 H 95 10/17/17 15:49 10/18/17 04:54 10/17/17 15:49 10/18/17 04:54 10/17/17 15:49 Oxygen Delivery Method Room Air Weight: 51.71 kg Body Mass Index (BMI) 21.5 Sodium 139 mmol/L (136-145) 10/18/17 05:50 Potassium 3.8 mmol/L (3.5-5.1) 10/18/17 05:50 Chloride 103 mmol/L (98-107) 10/18/17 05:50 Carbon Dioxide 29.0 mmol/L (21.0-32.0) 10/18/17 05:50 Anion Gap 7 (5-15) 10/18/17 05:50 BUN 14 mg/dL (7-18) 10/18/17 05:50 Creatinine 0.56 mg/dL (0.55-1.02) 10/18/17 05:50 Est GFR (MDRD) Af Amer 136 mL/min (>60) 10/18/17 05:50 Est GFR (MDRD) Non-Af 112 mL/min (>60) 10/18/17 05:50 BUN/Creatinine Ratio 25.0 RATIO (10-20) H 10/18/17 05:50 Glucose 102 mg/dL (74-106) 10/18/17 05:50 Assessment/Plan: 1) Pain APAP scheduled, oxycodone for severe pain. Continue to monitor prn medication use, daily pain scores. 2) HTN Metoprolol XL daily. Continue to monitor BP/HR. 3) DVT PPx Enoxaparin daily. Continue to monitor s/s bleeding/clot. 4) Hx of Herpes Acyclovir daily. Continue to monitor for symptoms. 5) Alzheimer's Memantine twice daily. Continue to monitor clinically. 6) Insomnia Melatonin at HS. Continue to monitor for insomnia. Psychotropic Medications: 7) Behavior Quetiapine at HS. Tapering off after 10/31. Unnecessary Medications: None Bowel Regimen: 8) Senna/s, PEG, prn bisacodyl. Continue to monitor prn medication use, for constipation/diarrhea. Date of Note:: 10/18/17 - Provider Comments Provider responsibility: Provider responsible to enter orders to implement recommendations <Tanner Fong Chi - Last Filed: 10/18/17 14:04> Progress Note - Pharmacy Subjective: [] Objective: Allergies No Known Allergies Allergy (Verified 10/13/17 11:45) Current Medications Generic Name Dose Route Start Last Admin Trade Name Freq PRN Reason Stop Dose Admin Acetaminophen 1,000 mg 10/17/17 22:00 10/18/17 13:19 Tylenol PO 1,000 mg Q8H YOEL Administration Acyclovir 800 mg 10/17/17 06:00 10/18/17 04:54 Zovirax PO 800 mg DAILY YOEL Administration Bisacodyl 10 mg 10/16/17 21:56 Dulcolax PO DAILY PRN PRN Constipation Enoxaparin Sodium 40 mg 10/17/17 06:00 10/18/17 04:59 Lovenox SC 40 mg DAILY@0600 YOEL Administration Melatonin 10 mg 10/16/17 21:54 Melatonin PO QHS PRN PRN INSOMNIA Memantine 10 mg 10/17/17 06:00 10/18/17 04:55 Namenda PO 10 mg BID YOEL Administration Metoprolol Succinate 50 mg 10/17/17 06:00 10/18/17 04:54 Toprol Xl (Beta Usman) PO 50 mg DAILY YOEL Administration Nutritional Formula (Lactose Free) 120 ml 10/18/17 12:48 Ensure Enlive PO 4X/DAY [facility] Oxycodone HCl 5 mg 10/16/17 19:37 10/18/17 09:49 Oxyir PO 5 mg Q4H PRN PRN Administration SEVERE PAIN (6-10/10) Polyethylene Glycol 17 gm 10/17/17 06:00 10/18/17 04:56 Miralax PO 17 gm DAILY YOEL Administration Quetiapine Fumarate 25 mg 10/16/17 22:00 10/17/17 20:39 Seroquel PO 10/23/17 22:01 25 mg QHS YOEL Administration Quetiapine Fumarate 12.5 mg 10/24/17 22:00 Seroquel PO 10/31/17 22:01 QHS YOEL Senna/Docusate Sodium 1 tablet 10/17/17 06:00 10/18/17 04:54 Senokot-S, [place]-Colace PO 1 tablet BID YOEL Administration Tuberculin PPD 5 tu 10/24/17 10:00 Tubersol, Aplisol, Ppd ID 10/24/17 10:01 X1 ONE Problem List Fall (Acute) Alzheimer's disease (Chronic) Behavioral disorder (Chronic) Vital Signs Temp Pulse Resp BP Pulse Ox 98.8 F 94 18 149/89 H 95 10/17/17 15:49 10/18/17 04:54 10/17/17 15:49 10/18/17 04:54 10/17/17 15:49 Oxygen Delivery Method Room Air Weight: 51.71 kg Body Mass Index (BMI) 21.5 Sodium 139 mmol/L (136-145) 10/18/17 05:50 Potassium 3.8 mmol/L (3.5-5.1) 10/18/17 05:50 Chloride 103 mmol/L (98-107) 10/18/17 05:50 Carbon Dioxide 29.0 mmol/L (21.0-32.0) 10/18/17 05:50 Anion Gap 7 (5-15) 10/18/17 05:50 BUN 14 mg/dL (7-18) 10/18/17 05:50 Creatinine 0.56 mg/dL (0.55-1.02) 10/18/17 05:50 Est GFR (MDRD) Af Amer 136 mL/min (>60) 10/18/17 05:50 Est GFR (MDRD) Non-Af 112 mL/min (>60) 10/18/17 05:50 BUN/Creatinine Ratio 25.0 RATIO (10-20) H 10/18/17 05:50 Glucose 102 mg/dL (74-106) 10/18/17 05:50 Assessment/Plan: Psychotropic Medications: Unnecessary Medications: Bowel Regimen: - Provider Comments Provider responsibility: Provider responsible to enter orders to implement recommendations Provider Comments to Recommendations by Pharmacy: Agree
--- NOTE | 2017-10-18 14:30 | RAD_ITS ---
STUDY: X-RAY - LEFT SHOULDER REASON FOR EXAM: Female, 76 years old. Pain. No known injury. TECHNIQUE: 2 view(s) of the shoulder. COMPARISON: Comparison is made with prior study dated October 13, 2017. FINDINGS: Normal glenohumeral articulation. There is hypertrophic osteoarthrosis of the acromioclavicular joint with inferior osseous spur formation. Normal acromion. Normal humeral head and visualized proximal humerus. The soft tissue structures are unremarkable. Normal visualized pulmonary apex. RAD/Shoulder min 2 Views IMPRESSION: Degenerative changes of the acromioclavicular joint. Electronically Signed: Ab Ricks MD at 15:14 EDT Tel [phone], Service support ,
[2017-10-18 16:00] VITALS: BP 110/56; PULSE 78; RESP 18; TEMP 36.8; O2SAT 95
--- NOTE | 2017-10-18 17:10 | NURSING ---
Addendum entered by Suly Koroma 10/18/17 17:10: shoulder xray reviewed by Dr. Fong, NO for medrol dose pack. Original Note: Pt has c/o left shoulder pain, oxyir ineffective. NO for left shoulder xray.
--- NOTE | 2017-10-18 19:10 | NURSING ---
labs reviewed, NNO.
[2017-10-18 22:00] VITALS: BP 142/78; PULSE 80; RESP 20; TEMP 37; O2SAT 96
[2017-10-18] MEDS: QUEtiapine 25 MG Tablet PO (23:31)
[2017-10-18 23:52] VITALS: RESP 16
[2017-10-19] MEDS: oxyCODONE 5 MG Tablet PO ×2 (01:47→10:55)
[2017-10-19] MEDS: Enoxaparin 40 MG/0.4 ML Syringe SC (05:43)
[2017-10-19] MEDS: Polyethylene Glycol 3350 17 GM PACKET PO (05:43)
[2017-10-19 05:44] VITALS: PULSE 100
[2017-10-19] MEDS: Metoprolol(XL)Succ 50 MG Tablet PO (05:44)
[2017-10-19] MEDS: Senna/Docusate Sodium 1 Tablet PO ×2 (05:44→17:01)
[2017-10-19] MEDS: Acyclovir 800 MG Tablet PO (05:44)
[2017-10-19] MEDS: Memantine Hydrochloride 10 MG Tablet PO ×2 (05:45→17:01)
[2017-10-19] MEDS: Acetaminophen 500 MG Tablet 1000 MG PO ×3 (05:45→23:12)
[2017-10-19] MEDS: MethylPREDNISolone DosePak 4 MG BOX PO ×4 (08:46→20:59)
[2017-10-19 15:38] VITALS: BP 132/74; PULSE 74; RESP 16; TEMP 36.2; O2SAT 97
[2017-10-19] MEDS: QUEtiapine 25 MG Tablet PO (20:58)
--- NOTE | 2017-10-19 21:06 | NURSING ---
pt took hs ensure & meds without difficulty. resting in low bed. call light in reach denies further needs
[2017-10-20] MEDS: oxyCODONE 5 MG Tablet PO ×3 (02:46→16:49)
[2017-10-20] MEDS: Polyethylene Glycol 3350 17 GM PACKET PO (06:01)
[2017-10-20] MEDS: Memantine Hydrochloride 10 MG Tablet PO ×2 (06:01→16:49)
[2017-10-20] MEDS: Acyclovir 800 MG Tablet PO (06:01)
[2017-10-20] MEDS: Senna/Docusate Sodium 1 Tablet PO ×2 (06:01→16:49)
[2017-10-20] MEDS: Enoxaparin 40 MG/0.4 ML Syringe SC (06:01)
[2017-10-20] MEDS: Acetaminophen 500 MG Tablet 1000 MG PO ×3 (06:01→21:43)
[2017-10-20 06:02] VITALS: BP 139/75; PULSE 79
[2017-10-20] MEDS: Metoprolol(XL)Succ 50 MG Tablet PO (06:02)
[2017-10-20] MEDS: MethylPREDNISolone DosePak 4 MG BOX PO ×4 (09:13→21:43)
[2017-10-20 16:00] VITALS: BP 136/68; PULSE 77; RESP 16; TEMP 36; O2SAT 16
[2017-10-20] MEDS: QUEtiapine 25 MG Tablet PO (21:44)
[2017-10-21 05:00] LABS: Bedside Glucose 122 mg/dL (70-110)
[2017-10-21 05:10] VITALS: BP 146/78; PULSE 69
[2017-10-21] MEDS: Metoprolol(XL)Succ 50 MG Tablet PO (05:10)
[2017-10-21] MEDS: Enoxaparin 40 MG/0.4 ML Syringe SC (05:11)
[2017-10-21] MEDS: Memantine Hydrochloride 10 MG Tablet PO ×2 (05:11→17:29)
[2017-10-21] MEDS: Polyethylene Glycol 3350 17 GM PACKET PO (05:11)
[2017-10-21] MEDS: Acyclovir 800 MG Tablet PO (05:11)
[2017-10-21] MEDS: Senna/Docusate Sodium 1 Tablet PO ×2 (05:11→17:29)
[2017-10-21] MEDS: Acetaminophen 500 MG Tablet 1000 MG PO ×3 (05:11→22:11)
[2017-10-21] MEDS: oxyCODONE 5 MG Tablet PO ×3 (05:27→20:23)
[2017-10-21] MEDS: MethylPREDNISolone DosePak 4 MG BOX PO ×4 (09:35→22:11)
[2017-10-21 15:05] VITALS: BP 111/65; PULSE 68; RESP 18; TEMP 36.6; O2SAT 95
[2017-10-21] MEDS: QUEtiapine 25 MG Tablet PO (22:11)
[2017-10-22 05:03] VITALS: BP 136/80; PULSE 77
[2017-10-22] MEDS: Polyethylene Glycol 3350 17 GM PACKET PO (05:03)
[2017-10-22] MEDS: Memantine Hydrochloride 10 MG Tablet PO ×2 (05:03→16:46)
[2017-10-22] MEDS: Acyclovir 800 MG Tablet PO (05:03)
[2017-10-22] MEDS: Metoprolol(XL)Succ 50 MG Tablet PO (05:03)
[2017-10-22] MEDS: Senna/Docusate Sodium 1 Tablet PO ×2 (05:03→16:46)
[2017-10-22] MEDS: Enoxaparin 40 MG/0.4 ML Syringe SC (05:03)
[2017-10-22] MEDS: Acetaminophen 500 MG Tablet 1000 MG PO ×3 (05:04→21:20)
[2017-10-22] MEDS: MethylPREDNISolone DosePak 4 MG BOX PO ×3 (09:34→21:20)
[2017-10-22] MEDS: oxyCODONE 5 MG Tablet PO (13:41)
--- NOTE | 2017-10-22 14:22 | CHAPLAIN ---
Type of Pastoral Visit _x__ Initial Visit ___ Follow-up Visit ___ On-call Visit ___ General Patient Visit ___ Spiritual Assessment ___ Family Conference ___ Bereavement ___ Rapid Response ___ Code Blue ___ Other (describe below) Pastoral Care Referral From _x__ Patient ___ Family ___ Nurse ___ Physician ___ Maintenance Machinist ___ Lead Relay Tester ___ Other (describe below) Sacrament/Intervention ___ Active listening ___ Anointing ___ Cheondoism ___ Bereavement ___ Communion ___ Geraldine exploration ___ ___ Life review ___ Prayer ___ Reconciliation ___ Sacrament of Sick _x__ Supportive presence ___ Wedding ___ Other (describe below) Pastoral Comments patient tells me that she is not feeling well; daughter is with her; offer of support given with promise to return another time; pt said she would prefer that
[2017-10-22 15:28] VITALS: BP 107/65; PULSE 81; RESP 18; TEMP 36.8; O2SAT 95
[2017-10-22] MEDS: QUEtiapine 25 MG Tablet PO (21:20)
[2017-10-23 06:11] VITALS: BP 156/81; PULSE 67
[2017-10-23] MEDS: oxyCODONE 5 MG Tablet PO ×2 (06:11→11:59)
[2017-10-23] MEDS: Acyclovir 800 MG Tablet PO (06:11)
[2017-10-23] MEDS: Metoprolol(XL)Succ 50 MG Tablet PO (06:11)
[2017-10-23] MEDS: Memantine Hydrochloride 10 MG Tablet PO ×2 (06:11→16:53)
[2017-10-23] MEDS: Polyethylene Glycol 3350 17 GM PACKET PO (06:12)
[2017-10-23] MEDS: Senna/Docusate Sodium 1 Tablet PO ×2 (06:12→16:52)
[2017-10-23] MEDS: Acetaminophen 500 MG Tablet 1000 MG PO ×3 (06:12→20:53)
[2017-10-23] MEDS: Enoxaparin 40 MG/0.4 ML Syringe SC (06:12)
[2017-10-23] MEDS: MethylPREDNISolone DosePak 4 MG BOX PO ×2 (08:01→20:54)
--- NOTE | 2017-10-23 13:58 | CASEMGMT ---
Plan of care meeting held. Resident present as well as resident family. No discharge date set at this time. Resident plans to continue with further care and treatment on the Transitional Care Unit at this time. Resident plans to discharge home where resident will have 24hr care provided by family and private duty aides. Team is recommending for resident to have 24hr care within the home at time of discharge. Support given. Will continue to follow. Katelyn FRASER, AIRPLANE PILOT CHIEF
[2017-10-23 15:44] VITALS: BP 128/68; PULSE 64; RESP 18; TEMP 36.8; O2SAT 96
--- NOTE | 2017-10-23 16:40 | CASEMGMT ---
Brief interview for mental status (BIMS) and resident mood interview (PHQ-9) completed on this day. BIMS score 07/11. PHQ-9 score
[2017-10-23] MEDS: QUEtiapine 25 MG Tablet PO (20:53)
[2017-10-23] MEDS: MELATONIN 10 MG TABLET PO (20:54)
[2017-10-24 05:16] VITALS: BP 164/89; PULSE 96
[2017-10-24] MEDS: Polyethylene Glycol 3350 17 GM PACKET PO (05:16)
[2017-10-24] MEDS: Memantine Hydrochloride 10 MG Tablet PO ×2 (05:16→17:06)
[2017-10-24] MEDS: Acetaminophen 500 MG Tablet 1000 MG PO ×3 (05:16→21:36)
[2017-10-24] MEDS: Metoprolol(XL)Succ 50 MG Tablet PO (05:16)
[2017-10-24] MEDS: Senna/Docusate Sodium 1 Tablet PO (05:16)
[2017-10-24] MEDS: Acyclovir 800 MG Tablet PO (05:16)
[2017-10-24] MEDS: Enoxaparin 40 MG/0.4 ML Syringe SC (05:20)
[2017-10-24] MEDS: MethylPREDNISolone DosePak 4 MG BOX PO (07:56)
[2017-10-24] MEDS: oxyCODONE 5 MG Tablet PO ×2 (07:58→14:50)
[2017-10-24] MEDS: Tuberculin,Purif.prot.deriv. 50 TU/ML Vial 5 ML ID (12:59)
[2017-10-24 15:22] VITALS: BP 121/52; PULSE 75; RESP 18; TEMP 36.8; O2SAT 97
--- NOTE | 2017-10-24 17:59 | NURSING ---
dr Fong notified of pt urine with odor and urinary frequency, [facility] C&S
[2017-10-24] MEDS: QUEtiapine 25 MG Tablet 12.5 MG PO (19:58)
[2017-10-24 22:12] LABS: Bacteria 0 SEEN /hpf (None Seen); Mucous, Urine 0 SEEN /hpf (<or=2+); Red Blood Cells-Urine 0 SEEN /hpf (0-5); Squamous Epithelial Cells - UA 0 SEEN /hpf (5-10); White Blood Cells 0 SEEN /hpf (0-5)
[2017-10-24 22:16] LABS: Color, Urine Yellow (Yellow); Glucose, Dipstick Normal (Normal); Ketone-Dipstick Negative (Negative); Leukocyte Esterase-Dipstick Negative /ul (Negative); Nitrite-Dipstick Negative (Negative); Occult Blood-Urine 25 /ul (Negative); Protein-Dipstick Negative (Negative); Specific Gravity, Urine 1.015 (1.002-1.030); Urine Bilirubin Dipstick Negative (Negative); Urine Clarity Clear (Clear); Urine Urobilinogen Normal (Normal); Urine pH 6.5 (5.0 - 8.0)
--- NOTE | 2017-10-24 23:22 | NURSING ---
Dr Fong notified that UA only showed some blood in urine, waiting on urine culture.
[2017-10-25] MEDS: Acyclovir 800 MG Tablet PO (04:12)
[2017-10-25] MEDS: Polyethylene Glycol 3350 17 GM PACKET PO (04:12)
[2017-10-25] MEDS: Enoxaparin 40 MG/0.4 ML Syringe SC (04:12)
[2017-10-25] MEDS: Memantine Hydrochloride 10 MG Tablet PO ×2 (04:12→16:23)
[2017-10-25] MEDS: Senna/Docusate Sodium 1 Tablet PO ×2 (04:12→16:23)
[2017-10-25 04:17] VITALS: BP 156/78; PULSE 74
[2017-10-25] MEDS: Metoprolol(XL)Succ 50 MG Tablet PO (04:17)
[2017-10-25] MEDS: oxyCODONE 5 MG Tablet PO ×2 (04:20→09:24)
[2017-10-25] MEDS: Acetaminophen 500 MG Tablet 1000 MG PO ×3 (05:05→21:24)
[2017-10-25 06:03] LABS: Absolute Neutrophil Count 6.9 X10^3/uL (2.0-7.7); Basophil# 0.07 X10^3/uL; Basophil% 0.7 % (0-1); Eosinophil# 0.25 X10^3/uL; Eosinophils% 2.5 % (0-5); Hematocrit 36.3 % (37-47); Lymphocyte % 16.8 % (19-41); Mean Corp Hgb Conc 33.1 g/gl (32-36); Mean Corpuscular Hgb 32.1 pg (27.0-32.0); Mean Corpuscular Volume 97.1 fL (81-99); Mean Platelet Vol. 8.3 fl (6.2-12.0); Monocyte# 1.08 X10^3/uL; Monocyte% 10.7 % (0-10); Neutrophil # 6.88 X10^3/uL (2.7-7.7); Platelet Count 444 K/mm3 (150-450); RBC Distribution Width CV 13.4 % (11.6-14.6); Red Blood Count 3.74 M/mm3 (4.2-5.4); White Blood Count 10.1 K/mm3 (4.4-11.0)
[2017-10-25 06:04] LABS: Differential Indicated SCAN CRITERIA MET; POSITIVE COUNT NO; POSITIVE DIFFERENTIAL NO; POSITIVE MORPHOLOGY YES
[2017-10-25 06:23] LABS: Anion Gap 7 (5-15); BUN 18 mg/dL (7-18); BUN/Creat Ratio 30.8 RATIO (10-20); Chloride 99 mmol/L (98-107); Creatinine, Serum 0.58 mg/dL (0.55-1.02); EST Glomerular Filtration Rate 107 mL/min (>60); Est Glom Filt Rate - Afr Amer 129 mL/min (>60); Estimated Creatinine Clearance 36.68 ml/min; Glucose 93 mg/dL (74-106); Potassium 3.7 mmol/L (3.5-5.1); Sodium Level 137 mmol/L (136-145)
[2017-10-25 06:28] LABS: Differential Comment SCANNED
[2017-10-25 15:31] VITALS: RESP 16
[2017-10-25 15:54] VITALS: BP 139/72; PULSE 78; RESP 16; TEMP 35.9; O2SAT 96
[2017-10-25] MEDS: QUEtiapine 25 MG Tablet 12.5 MG PO (21:24)
[2017-10-26] MEDS: oxyCODONE 5 MG Tablet PO ×2 (03:57→18:52)
[2017-10-26] MEDS: Acyclovir 800 MG Tablet PO (04:00)
[2017-10-26 04:01] VITALS: BP 139/88; PULSE 76
[2017-10-26] MEDS: Polyethylene Glycol 3350 17 GM PACKET PO (04:01)
[2017-10-26] MEDS: Metoprolol(XL)Succ 50 MG Tablet PO (04:01)
[2017-10-26] MEDS: Enoxaparin 40 MG/0.4 ML Syringe SC (04:01)
[2017-10-26] MEDS: Memantine Hydrochloride 10 MG Tablet PO ×2 (04:01→18:01)
[2017-10-26] MEDS: Senna/Docusate Sodium 1 Tablet PO ×2 (04:02→18:01)
[2017-10-26] MEDS: Acetaminophen 500 MG Tablet 1000 MG PO ×3 (06:39→21:26)
[2017-10-26 15:47] VITALS: BP 127/60; PULSE 64; RESP 16; TEMP 35.3; O2SAT 95
[2017-10-26] MEDS: QUEtiapine 25 MG Tablet 12.5 MG PO (21:25)
[2017-10-27 04:19] VITALS: BP 118/68; PULSE 74
[2017-10-27] MEDS: Enoxaparin 40 MG/0.4 ML Syringe SC (04:19)
[2017-10-27] MEDS: Polyethylene Glycol 3350 17 GM PACKET PO (04:19)
[2017-10-27] MEDS: Metoprolol(XL)Succ 50 MG Tablet PO (04:19)
[2017-10-27] MEDS: Memantine Hydrochloride 10 MG Tablet PO ×2 (04:20→17:17)
[2017-10-27] MEDS: Acetaminophen 500 MG Tablet 1000 MG PO ×3 (04:20→21:01)
[2017-10-27] MEDS: Senna/Docusate Sodium 1 Tablet PO ×2 (04:20→17:17)
[2017-10-27] MEDS: Acyclovir 800 MG Tablet PO (04:21)
[2017-10-27 15:22] VITALS: BP 108/62; PULSE 74; RESP 18; TEMP 36.6; O2SAT 96
[2017-10-27] MEDS: QUEtiapine 25 MG Tablet 12.5 MG PO (21:00)
[2017-10-27] MEDS: MELATONIN 10 MG TABLET PO (21:01)
[2017-10-28] MEDS: Polyethylene Glycol 3350 17 GM PACKET PO (05:52)
[2017-10-28 05:53] VITALS: BP 127/77; PULSE 77
[2017-10-28] MEDS: Metoprolol(XL)Succ 50 MG Tablet PO (05:53)
[2017-10-28] MEDS: Memantine Hydrochloride 10 MG Tablet PO ×2 (05:54→17:09)
[2017-10-28] MEDS: Acyclovir 800 MG Tablet PO (05:54)
[2017-10-28] MEDS: Acetaminophen 500 MG Tablet 1000 MG PO ×3 (05:54→21:14)
[2017-10-28] MEDS: Enoxaparin 40 MG/0.4 ML Syringe SC (05:54)
[2017-10-28] MEDS: Senna/Docusate Sodium 1 Tablet PO ×2 (05:54→17:09)
[2017-10-28 16:00] VITALS: BP 139/73; PULSE 73; RESP 18; TEMP 36.8; O2SAT 96
[2017-10-28] MEDS: QUEtiapine 25 MG Tablet 12.5 MG PO (21:14)
[2017-10-29] MEDS: Acyclovir 800 MG Tablet PO (04:43)
[2017-10-29] MEDS: Acetaminophen 500 MG Tablet 1000 MG PO ×3 (04:43→19:59)
[2017-10-29] MEDS: Enoxaparin 40 MG/0.4 ML Syringe SC (04:43)
[2017-10-29 04:44] VITALS: BP 121/81; PULSE 79
[2017-10-29] MEDS: Senna/Docusate Sodium 1 Tablet PO ×2 (04:44→16:27)
[2017-10-29] MEDS: Metoprolol(XL)Succ 50 MG Tablet PO (04:44)
[2017-10-29] MEDS: Memantine Hydrochloride 10 MG Tablet PO ×2 (04:44→16:27)
[2017-10-29] MEDS: oxyCODONE 5 MG Tablet PO ×2 (10:59→19:59)
--- NOTE | 2017-10-29 12:10 | MDS.RN ---
Information for the mds was obtained from review of the clinical record, interview of resident, staff, and direct observation of resident's care.
--- NOTE | 2017-10-29 15:24 | MDS.RN ---
Pain interview for JASBIR 10/30/17 completed.
[2017-10-29 15:31] VITALS: BP 111/61; PULSE 74; RESP 16; TEMP 36.3; O2SAT 97
--- NOTE | 2017-10-29 15:53 | CASEMGMT ---
Brief interview for mental status (BIMS) and resident mood interview (PHQ-9) completed on this day. BIMS score 07/11. PHQ-9 score
--- NOTE | 2017-10-29 15:54 | CASEMGMT ---
Social Work Spoke with resident and resident family in room. This social service manager communicating that discharge date has been set for 11/01/17. Resident daughter requesting for discharge date to be changed to 11/04/17 as this is when the private duty aides will be able to start. Collaborating with team, discharge date changed to 11/04/17 per resident and resident family request. Resident to discharge home alone with 24hr care. This social service manager communicating that physical and occupational therapy are recommending for resident to have continued services within the home. Resident and resident family are agreeable to recommendation and requesting for home health services to be set up through [facility] ([facility] Resident also current with [facility] ([facility]) and would like to continue. Resident daughter voicing that resident also need a walker. Resident/resident family do not have a preference of [email or web address] to be utilized. Resident family to provide transportation home for resident at time of discharge. Support given. Proposed discharge date: 11/04/17 Will continue to follow for further discharge planning and support. PLAN: Discharge home with 24hr care provided by aides and home health services. Katelyn FRASER, SWIMMING POOL SERVICE TECHNICIAN
--- NOTE | 2017-10-29 15:56 | CHAPLAIN ---
Type of Pastoral Visit ___ Initial Visit _x__ Follow-up Visit ___ On-call Visit ___ General Patient Visit ___ Spiritual Assessment ___ Family Conference ___ Bereavement ___ Rapid Response ___ Code Blue ___ Other (describe below) Pastoral Care Referral From _x__ Patient ___ Family ___ Nurse ___ Physician ___ Wrapper Layer And Examiner Soft Work ___ Border Patrol Agent ___ Other (describe below) Sacrament/Intervention ___ Active listening ___ Anointing ___ Rastafari ___ Bereavement ___ Communion ___ Geraldine exploration ___ ___ Life review ___ Prayer ___ Reconciliation ___ Sacrament of Sick _x__ Supportive presence ___ Wedding ___ Other (describe below) Pastoral Comments brief visit as patient is hoping to rest; pt said that I think I am doing fine, am I?; pt exhibited no other concerns at this time
--- NOTE | 2017-10-29 18:01 | PCM.DC ---
- Discharge Diagnoses Current Active Problems: Current Active and Chronic Problems Fall (Acute) Alzheimer's disease (Chronic) Behavioral disorder (Chronic) You will use the following diet at home:: No restrictions, Regular Your food should be the consistency of: Regular Your liquids should be the consistency of: Regular/Thin Discharge Activity: Return to Normal Activity, May Shower, Use Walker Weight Bearing Status: Weight bearing as tolerated Call your doctor if you observe: Fever of 101 or Higher, Inability to urinate, Inability to have a bowel movement, Shortness of breath, Chest pain, Uncontrolled pain Allergies/Adverse Reactions: Allergies No Known Allergies Allergy (Verified 10/13/17 11:45) Medications to take at Discharge Acyclovir [Zovirax] 800 mg PO DAILY 10/13/17 Memantine HCl 10 mg PO BID 10/13/17 Metoprolol(XL)Succ [Toprol Xl (Beta Usman)] 50 mg PO DAILY 10/13/17 Acetaminophen [Tylenol] 1,000 mg PO Q8H tablet 10/29/17 Melatonin 10 mg PO QHS PRN PRN #30 tab 10/29/17 Oxycodone [Oxyir] 5 mg PO Q4H PRN PRN 7 Days #30 tab 10/29/17 Polyethylene Glycol 3350 [Miralax] 17 gm PO DAILY #30 packet 10/29/17 The following prescriptions were given: Oxycodone [Oxyir] 5 mg PO Q4H PRN PRN 7 Days #30 tab PRN Reason: Severe Pain (6-10/10) Melatonin 10 mg PO QHS PRN PRN #30 tab PRN Reason: Insomnia Polyethylene Glycol 3350 [Miralax] 17 gm PO DAILY #30 packet Primary Care Physician: Tien Roldan MD [Primary Care Provider] - Please follow up with your Primary Care Physician in: 1 week. Test Results: Proposed Discharge Date: 11/04/17
--- NOTE | 2017-10-29 18:03 | PCM.DC.SUM ---
Discharge Date and Diagnosis - Problem List Patient Problems: Active and Suspected Problems Fall (Acute) Date of Admission: 10/16/17 Date of Discharge: 11/04/17 - Primary Discharge Diagnosis Active and Suspected Problems Fall (Acute) - Secondary Discharge Diagnosis Chronic Problems Hypertension (Chronic) Dementia (Chronic) Alzheimer's disease (Chronic) Behavioral disorder (Chronic) Hospital Course and Treatment Imaging Results: 10/16/17 19:41 Diet: Regular Diet Clinical Impression(s) from Imaging Studies Shoulder X-Ray 10/18/17 14:30 IMPRESSION: Degenerative changes of the acromioclavicular joint. Electronically Signed: Ab Ricks MD at 15:14 EDT Tel [phone], Service support , Operations: None Procedures: None Summary of Care Provided: The patient is a 76 year old Female with below past medical history significant for Alzheimer's Disease, hospitalized for fall, acute pelvic fracture, admitted to TCU with debility, here for rehabilitation, strengthening, prior to retirement care placement. Discharge home with 24 hour care provided by aides, and Home Health Services. Discharge Diet: No Restrictions Discharge Activity: Return to Normal Activity, May Shower, Use Walker Weight Bearing Status: Weight bearing as tolerated Call your doctor if you observe: Fever of 101 or Higher, Inability to urinate, Inability to have a bowel movement, Shortness of breath, Chest pain, Uncontrolled pain Home Medications: Medications to take at Discharge Acyclovir [Zovirax] 800 mg PO DAILY 10/13/17 Memantine HCl 10 mg PO BID 10/13/17 Metoprolol(XL)Succ [Toprol Xl (Beta Usman)] 50 mg PO DAILY 10/13/17 Acetaminophen [Tylenol] 1,000 mg PO Q8H tablet 10/29/17 Melatonin 10 mg PO QHS PRN PRN #30 tab 10/29/17 Oxycodone [Oxyir] 5 mg PO Q4H PRN PRN 7 Days #30 tab 10/29/17 Polyethylene Glycol 3350 [Miralax] 17 gm PO DAILY #30 packet 10/29/17 Following Prescrptions Were Given to Patient: Oxycodone [Oxyir] 5 mg PO Q4H PRN PRN 7 Days #30 tab PRN Reason: Severe Pain (6-02/05) Melatonin 10 mg PO QHS PRN PRN #30 tab PRN Reason: Insomnia Polyethylene Glycol 3350 [Miralax] 17 gm PO DAILY #30 packet Primary Care Physician: Tien Roldan MD [Primary Care Provider] - Please follow up with your Primary Care Physician in: 1 week. Disposition: Home with Home Health Minutes spent on discharge:: 35 Patient Condition:: Good Medical Necessity - Tobacco Use Smoking Status: Never smoker Tobacco Use: Non-smoker Meaningful Use Info Meaningful Use Diagnoses (Choose all that apply): None applicable
--- NOTE | 2017-10-29 18:05 | HHNOTE_ITS ---
Home Health Note - Plan Overview of reason of hospitalization: The patient is a 76 year old Female with below past medical history significant for Alzheimer's Disease, hospitalized for fall, acute pelvic fracture, admitted to TCU with debility, here for rehabilitation, strengthening, prior to longterm care placement. Discharge home with 24 hour care provided by aides, and Home Health Services. Problems: Patient was seen for Fall (Acute) Alzheimer's disease (Chronic) Behavioral disorder (Chronic) Complete List of Medical Problems Pelvic fracture (Acute) Hypertension (Chronic) Dementia (Chronic) Hyponatremia (Acute) Fall (Acute) Alzheimer's disease (Chronic) Behavioral disorder (Chronic) - Requirements and Reasons Disciplines Needed/Ordered: Physical Therapy Reason for Disciplines: Gait Training, Stair Training, Fall Prevention, Home Safety/Equipment Instruction, Balance and/or Posture Training, Transfer Training Related To: Limited/Poor Endurance, Shortness of Breath with Activity, Physical Impairments, Unsteady Gait/Balance, Fall Risk Patient is unable to leave the home: Without Aid of Supportive Devices (crutches , cane, wheelchair, walker), Without the assistance of another person - Additional Disciplines Additional Disciplines Needed/Ordered: Occupational Therapy
[2017-10-29] MEDS: QUEtiapine 25 MG Tablet 12.5 MG PO (20:00)
--- NOTE | 2017-10-29 20:01 | NURSING ---
pt requesting meds pt wanting to go to bed now
[2017-10-30] MEDS: Polyethylene Glycol 3350 17 GM PACKET PO (04:46)
[2017-10-30 04:47] VITALS: BP 156/65; PULSE 71
[2017-10-30] MEDS: Enoxaparin 40 MG/0.4 ML Syringe SC (04:47)
[2017-10-30] MEDS: Senna/Docusate Sodium 1 Tablet PO (04:47)
[2017-10-30] MEDS: Acetaminophen 500 MG Tablet 1000 MG PO ×3 (04:47→19:44)
[2017-10-30] MEDS: Metoprolol(XL)Succ 50 MG Tablet PO (04:47)
[2017-10-30] MEDS: Memantine Hydrochloride 10 MG Tablet PO ×2 (04:48→16:42)
[2017-10-30] MEDS: Acyclovir 800 MG Tablet PO (04:48)
[2017-10-30 15:35] VITALS: BP 106/67; PULSE 66; RESP 18; TEMP 36.8; O2SAT 97
[2017-10-30] MEDS: oxyCODONE 5 MG Tablet PO (19:43)
[2017-10-30] MEDS: QUEtiapine 25 MG Tablet 12.5 MG PO (19:45)
[2017-10-31] MEDS: Acetaminophen 500 MG Tablet 1000 MG PO ×3 (05:21→20:16)
[2017-10-31] MEDS: Senna/Docusate Sodium 1 Tablet PO ×2 (05:21→16:18)
[2017-10-31] MEDS: Enoxaparin 40 MG/0.4 ML Syringe SC (05:21)
[2017-10-31 05:22] VITALS: BP 151/79; PULSE 82
[2017-10-31] MEDS: Memantine Hydrochloride 10 MG Tablet PO ×2 (05:22→16:18)
[2017-10-31] MEDS: Metoprolol(XL)Succ 50 MG Tablet PO (05:22)
[2017-10-31] MEDS: Acyclovir 800 MG Tablet PO (05:22)
[2017-10-31] MEDS: oxyCODONE 5 MG Tablet PO (08:52)
[2017-10-31 15:55] VITALS: BP 103/59; PULSE 68; RESP 18; TEMP 36.4; O2SAT 96
[2017-10-31] MEDS: MELATONIN 10 MG TABLET PO (20:16)
[2017-10-31] MEDS: QUEtiapine 25 MG Tablet 12.5 MG PO (20:17)
[2017-11-01] MEDS: Acetaminophen 500 MG Tablet 1000 MG PO ×3 (04:25→20:09)
[2017-11-01] MEDS: Enoxaparin 40 MG/0.4 ML Syringe SC (04:25)
[2017-11-01] MEDS: Memantine Hydrochloride 10 MG Tablet PO ×2 (04:25→16:53)
[2017-11-01 04:26] VITALS: BP 122/71; PULSE 80
[2017-11-01] MEDS: Senna/Docusate Sodium 1 Tablet PO (04:26)
[2017-11-01] MEDS: Metoprolol(XL)Succ 50 MG Tablet PO (04:26)
[2017-11-01] MEDS: Polyethylene Glycol 3350 17 GM PACKET PO (04:27)
[2017-11-01] MEDS: Acyclovir 800 MG Tablet PO (04:27)
[2017-11-01 05:56] LABS: Absolute Lymphocyte Count 0.91 X10^3/ul (0.83-4.51); Absolute Neutrophil Count 5.3 X10^3/uL (2.0-7.7); Basophil# 0.05 X10^3/uL; Basophil% 0.7 % (0-1); Eosinophil# 0.18 X10^3/uL; Eosinophils% 2.5 % (0-5); Hematocrit 34.1 % (37-47); Hemoglobin 11.3 g/dl (12.0-15.0); Lymphocyte # 0.91 X10^3/ul (4.0); Lymphocyte % 12.6 % (19-41); Mean Corp Hgb Conc 33.1 g/gl (32-36); Mean Corpuscular Hgb 32.3 pg (27.0-32.0); Mean Corpuscular Volume 97.4 fL (81-99); Mean Platelet Vol. 8.7 fl (6.2-12.0); Monocyte# 0.75 X10^3/uL; Monocyte% 10.4 % (0-10); Neutrophil # 5.33 X10^3/uL (2.7-7.7); Neutrophil % 73.8 % (47-70); Platelet Count 315 K/mm3 (150-450); RBC Distribution Width CV 13.4 % (11.6-14.6); RBC Distribution Width SD 45.9 fl (35.1-43.9); White Blood Count 7.2 K/mm3 (4.4-11.0)
[2017-11-01 06:00] LABS: POSITIVE COUNT NO; POSITIVE DIFFERENTIAL NO; POSITIVE MORPHOLOGY NO
[2017-11-01] MEDS: oxyCODONE 5 MG Tablet PO (06:12)
[2017-11-01 06:22] LABS: Anion Gap 8 (5-15); BUN 15 mg/dL (7-18); BUN/Creat Ratio 29.4 RATIO (10-20); Calcium,Total 8.7 mg/dL (8.5-10.1); Chloride 103 mmol/L (98-107); Creatinine, Serum 0.51 mg/dL (0.55-1.02); EST Glomerular Filtration Rate 125 mL/min (>60); Est Glom Filt Rate - Afr Amer 151 mL/min (>60); Estimated Creatinine Clearance 36.68 ml/min; Glucose 93 mg/dL (74-106); Potassium 3.9 mmol/L (3.5-5.1); Sodium Level 139 mmol/L (136-145)
--- NOTE | 2017-11-01 13:06 | NURSING ---
Dr. Fong reviewed AM labs, NNO
--- NOTE | 2017-11-01 14:53 | CASEMGMT ---
Social Work Referral made to [facility], [place]. This health and social care teacher making referral for physical and occupational therapy. Order completed. Telephone call to Joselin Manzano. This health and social care teacher making referral for front wheeled walker. Joselin to have walker delivered to resident room prior to resident discharge. Order faxed. Notified [facility], [facility] of resident discharge. Spoke with resident and resident daughter (Azalia), this health and social care teacher confirming all above information. Resident and resident daughter are agreeable to discharge planning. Azalia reporting that resident will have 24hr care at time of discharge. Resident family plans to provide transportation home for resident at time of discharge. Support given. Proposed discharge date: 11/04/17 PLAN: Discharge home with 24hr care provided by family and private duty aides along with home health services. Katelyn FRASER, WASTE MACHINE OPERATOR
[2017-11-01 15:38] VITALS: BP 131/61; PULSE 76; RESP 18; TEMP 36.8; O2SAT 97
[2017-11-01] MEDS: MELATONIN 10 MG TABLET PO (20:15)
[2017-11-02] MEDS: oxyCODONE 5 MG Tablet PO ×2 (05:41→11:06)
[2017-11-02] MEDS: Enoxaparin 40 MG/0.4 ML Syringe SC (05:42)
[2017-11-02] MEDS: Acyclovir 800 MG Tablet PO (05:43)
[2017-11-02] MEDS: Acetaminophen 500 MG Tablet 1000 MG PO ×3 (05:43→21:01)
[2017-11-02] MEDS: Memantine Hydrochloride 10 MG Tablet PO ×2 (05:43→16:45)
[2017-11-02 05:44] VITALS: BP 139/73; PULSE 69
[2017-11-02] MEDS: Metoprolol(XL)Succ 50 MG Tablet PO (05:44)
[2017-11-02 15:23] VITALS: BP 120/79; PULSE 77; RESP 18; TEMP 36.7; O2SAT 97
[2017-11-02] MEDS: Senna/Docusate Sodium 1 Tablet PO (16:45)
[2017-11-02] MEDS: MELATONIN 10 MG TABLET PO (21:01)
[2017-11-03 05:54] VITALS: BP 116/84; PULSE 72
[2017-11-03] MEDS: Acetaminophen 500 MG Tablet 1000 MG PO ×3 (05:54→20:21)
[2017-11-03] MEDS: Enoxaparin 40 MG/0.4 ML Syringe SC (05:54)
[2017-11-03] MEDS: Acyclovir 800 MG Tablet PO (05:54)
[2017-11-03] MEDS: Metoprolol(XL)Succ 50 MG Tablet PO (05:54)
[2017-11-03] MEDS: Memantine Hydrochloride 10 MG Tablet PO ×2 (05:54→18:57)
[2017-11-03] MEDS: oxyCODONE 5 MG Tablet PO ×2 (08:53→18:55)
[2017-11-03 15:16] VITALS: BP 132/76; PULSE 69; RESP 16; TEMP 36.5; O2SAT 96
[2017-11-03] MEDS: Senna/Docusate Sodium 1 Tablet PO (18:57)
[2017-11-04] MEDS: Memantine Hydrochloride 10 MG Tablet PO (05:14)
[2017-11-04] MEDS: Acyclovir 800 MG Tablet PO (05:14)
[2017-11-04 05:15] VITALS: PULSE 72
[2017-11-04] MEDS: Senna/Docusate Sodium 1 Tablet PO (05:15)
[2017-11-04] MEDS: Enoxaparin 40 MG/0.4 ML Syringe SC (05:15)
[2017-11-04] MEDS: Acetaminophen 500 MG Tablet 1000 MG PO (05:15)
[2017-11-04] MEDS: Metoprolol(XL)Succ 50 MG Tablet PO (05:15)
[2017-11-04 09:24] VITALS: BP 133/73; PULSE 72; RESP 16; TEMP 36.8; O2SAT 96
[2017-11-04] MEDS: oxyCODONE 5 MG Tablet PO (11:28)
--- NOTE | 2017-11-04 11:38 | NURSING ---
dr rodriguez notified per daughter request, questioning why seroquel was dc'd. pt had been taking it at home for last couple years d/t behaviors. Per daughter Ajit elderly are at high risk for . explained to daughter and that she can f/u with the PCP or neurologist who started her on it. Daughter verbalized understanding.
--- NOTE | 2017-11-13 08:32 | MDS.RN ---
Information for the mds was obtained from review of the clinical record, interview of resident, staff, and direct observation of resident's care.
== END 2017-11-04 12:00 | disposition home health service (06) | DRG 560 ==
PROVIDERS: Admitting Provider Family Medicine Geriatric Medicine; Family Provider Family Medicine; PCP Family Medicine; Visit Provider Family Medicine Geriatric Medicine
DX: S32.592D Other specified fracture of left pubis, subsequent encounter for fracture with routine healing (principal); F02.81 Dementia in other diseases classified elsewhere, unspecified severity, with behavioral disturbance; W19.XXXD Unspecified fall, subsequent encounter; G30.9 Alzheimer's disease, unspecified; I10 Essential (primary) hypertension; Z79.899 Other long term (current) drug therapy; B00.9 Herpesviral infection, unspecified; Z23 Encounter for immunization
CPT/HCPCS: 36415; 73030; 80048; 81001; 82962; 85025; 87086; 90732; 97110; 97116; 97162; 97166; 97530; 97535; 97802; G0009

== ENCOUNTER → 2017-11-07 12:06 | Outpatient (CLI) | payer MEDICARE, BC, SELFPAY ==
--- NOTE | 2017-11-07 12:11 | RAD_ITS ---
STUDY: X-RAY - ABDOMEN/PELVIS REASON FOR EXAM: Female, 76 years old. Left lower quadrant pain TECHNIQUE: 3 AP views COMPARISON: None. FINDINGS: Normal visualized lung bases. There is an abundance of fecal material throughout the colon. There is no demonstrated free abdominal air. The visualized liver, spleen and kidneys are grossly normal in size and morphology. Diffuse vascular calcifications noted There are diffuse degenerative changes of the visualized lumbar spine. RAD/Abd Inc Decub and/or Erect IMPRESSION: No acute findings, constipation Electronically Signed: Jaycob Yang MD at 8:53 EDT , Service support ,
[2017-11-07 14:28] LABS: Absolute Lymphocyte Count 1.04 X10^3/ul (0.83-4.51); Absolute Neutrophil Count 6.7 X10^3/uL (2.0-7.7); Basophil# 0.02 X10^3/uL; Basophil% 0.2 % (0-1); Eosinophil# 0.07 X10^3/uL; Eosinophils% 0.8 % (0-5); Hemoglobin 12.4 g/dl (12.0-15.0); Lymphocyte # 1.04 X10^3/ul (4.0); Lymphocyte % 11.5 % (19-41); Mean Corp Hgb Conc 32.6 g/gl (32-36); Mean Corpuscular Hgb 31.7 pg (27.0-32.0); Mean Corpuscular Volume 97.2 fL (81-99); Mean Platelet Vol. 9.4 fl (6.2-12.0); Monocyte# 1.23 X10^3/uL; Monocyte% 13.6 % (0-10); Neutrophil # 6.67 X10^3/uL (2.7-7.7); Neutrophil % 73.8 % (47-70); Platelet Count 256 K/mm3 (150-450); RBC Distribution Width CV 13.6 % (11.6-14.6); RBC Distribution Width SD 48.1 fl (35.1-43.9); Red Blood Count 3.91 M/mm3 (4.2-5.4)
[2017-11-07 14:33] LABS: POSITIVE COUNT NO; POSITIVE DIFFERENTIAL NO; POSITIVE MORPHOLOGY NO
[2017-11-07 14:47] LABS: ALB/GLOB Ratio 0.8 RATIO (0.9-2.4); AST(SGOT) 27 U/L (15-37); Alanine Aminotransfer ALT/SGPT 35 U/L (13-56); Albumin, Serum 3.6 g/dL (3.2-5.0); Alkaline Phosphatase 150 U/L (45-117); Anion Gap 10 (5-15); BUN 18 mg/dL (7-18); Calcium,Total 9.1 mg/dL (8.5-10.1); Chloride 98 mmol/L (98-107); Creatinine, Serum 0.69 mg/dL (0.55-1.02); EST Glomerular Filtration Rate 88 mL/min (>60); Est Glom Filt Rate - Afr Amer 106 mL/min (>60); Globulin 4.5 g/dL (2.2-4.2); Glucose 90 mg/dL (74-106); Potassium 4.1 mmol/L (3.5-5.1); Protein, Total 8.1 g/dL (6.4-8.2); Sodium Level 136 mmol/L (136-145)
== END ==
PROVIDERS: Family Provider Family Medicine; PCP Family Medicine; Visit Provider Family Medicine
DX: R10.32 Left lower quadrant pain (principal)
CPT/HCPCS: 36415; 74019; 80053; 85025; 86140

== ENCOUNTER 2019-12-13 10:22 | Emergency (ER) | payer MEDICARE, BC, SELFPAY ==
[2019-12-13 10:24] VITALS: BP 110/78; PULSE 60; RESP 13; TEMP 36.4; O2SAT 98; BMI 21.1
--- NOTE | 2019-12-13 10:49 | EKG12_ITS ---
Test Reason : SYNCOPE Blood Pressure : / mmHG Vent. Rate : 060 BPM Atrial Rate : 060 BPM P-R Int : 154 ms QRS Dur : 080 ms QT Int : 478 ms P-R-T Axes : 036 033 058 degrees QTc Int : 478 ms Normal sinus rhythm Normal ECG Confirmed by VALENCIA DAMON, YULIET ([id number]), index editor NAVNEET HANNAH ([id number]) on 12/14/2019 2:43:06 PM Referred By: LEIDY/CHRISTELLE Confirmed By:YULIET BIRMINGHAM MD
[2019-12-13 10:56] LABS: Absolute Lymphocyte Count 1.73 X10^3/uL (0.83-4.51); Absolute Neutrophil Count 5.6 X10^3/uL (2.0-7.7); Basophil# 0.04 X10^3/uL; Basophil% 0.5 % (0-1); Eosinophil# 0.08 X10^3/uL; Hematocrit 37.5 % (37-47); Hemoglobin 12.4 g/dL (12.0-15.0); Lymphocyte # 1.73 X10^3/ul (4.0); Lymphocyte % 21.3 % (19-41); Mean Corp Hgb Conc 33.1 g/dL (32-36); Mean Corpuscular Hgb 29.6 pg (27.0-32.0); Mean Corpuscular Volume 89.5 fL (81-99); Mean Platelet Vol. 9.2 fl (6.2-12.0); Monocyte% 7.4 % (0-10); NRBC Flagged by Analyzer 0 % (0-5); Neutrophil # 5.64 X10^3/uL (2.7-7.7); Neutrophil % 69.6 % (47-70); Platelet Count 233 K/mm3 (150-450); RBC Distribution Width CV 13.2 % (11.6-14.6); RBC Distribution Width SD 42.7 fl (35.1-43.9); Red Blood Count 4.19 M/mm3 (4.2-5.4); White Blood Count 8.1 K/mm3 (4.4-11.0)
[2019-12-13 11:07] LABS: Anion Gap 8 (5-15); BUN 13 mg/dL (7-18); BUN/Creat Ratio 16.8 RATIO (10-20); Calcium,Total 8.2 mg/dL (8.5-10.1); Chloride 102 mmol/L (98-107); Creatinine, Serum 0.77 mg/dL (0.55-1.02); EST Glomerular Filtration Rate 77 mL/min (>60); Est Glom Filt Rate - Afr Amer 93 mL/min (>60); Estimated Creatinine Clearance 41.72 ml/min; Glucose 144 mg/dL (74-106); Potassium 3.7 mmol/L (3.5-5.1); Sodium Level 137 mmol/L (136-145)
--- NOTE | 2019-12-13 11:29 | ED.VIS.GEN ---
History of Present Illness Chief Complaint: Syncope Informant: Family Limited by: Dementia Onset: Today Context: Sudden Onset Timing: Intermittent Quality: Loss of postural tone, pallor and slow heart rate Location: Sitting in a chair at home Current Severity: Mild Maximum Severity: Severe Worsened by: Nothing Relieved by: Nothing Associated Symptoms: Pallor, unresponsiveness, low heart rate per daughter Narrative: 79-year-old woman who has history of Alzheimer's disease. She also has hypertension. She is not able to contribute much with regards to history. She was sitting. She became pale and lost postural tone. There may have been slight diaphoresis. Heart rate was slow. Radial pulse was palpable according to the daughter. The daughter is present with her is not the POA. In discussion with daughter who is present there is no living will or CODE STATUS. Daughter states she would not want CPR or intubation/life support. There is been no reported black stool. There is no reported vomiting. Patient presently denies head pain. She denies change in vision. There is no change in voice. She denies chest discomfort. There was shallow breathing according to the daughter. She denies abdominal discomfort or back pain. Prior similar symptoms: No Recent Illness/Hospitalization: No - Past Medical History (1) Alzheimer's disease Status: Chronic (2) Behavioral disorder Status: Chronic (3) Hypertension Status: Chronic Past Medical History - Allergies and Home Meds Allergies/Adverse Reactions: Allergies No Known Allergies Allergy (Verified 10/13/17 11:45) Primary Care Physician: Tien Roldan MD [Primary Care Provider] - Surgical History: no surgical history Lives: With Family Smoking Status: Never smoker Alcohol: None Drugs: None - Family History Maternal Family History: Reports: Dementia Paternal Family History: Reports: Unknown Review of Systems ROS: Unable to Obtain General: Denies: Chills, Sweats Eyes: Denies: Visual changes - bilaterally, Blurred Vision - bilaterally ENT: Denies: Rhinorrhea, Sore throat Cardiovascular: Denies: Chest pain, Palpitations Respiratory: Reports: Dyspnea. Denies: Cough Gastrointestinal: Denies: Abdominal pain, Vomiting, Diarrhea Musculoskeletal: Denies: Swelling, Extremity Pain Skin: Denies: Rash Hematologic: Denies: Easy bruising Allergy: Denies: Uticaria Physical Exam Vital Signs/Narrative: Vital Signs Temp Pulse Resp BP Pulse Ox 12/13/19 10:24 97.6 F L 60 13 110/78 98 Inital Vital Signs reviewed: Yes General: Well nourished, Well developed, No Acute Distress Head: Normocephalic, Atraumatic Eyes: Perrl, EOMI. Negative for: Pale conjunctiva, Scleral icterus ENT: No rhinorrhea, TM's clear Neck: Supple, Nontender, No lymphadenopathy, No JVD Cardiovascular: Regular rate, Regular rhythm, No murmurs, Normal S1, Normal S2 Respiratory: No distress, CTA bilaterally, Chest nontender Abdomen: Soft, Nontender, Nondistended, Normal bowel sounds, No masses. Negative for: Hepatomegaly, Splenomegaly, Mass, Pulsatile mass Back: Nontender, Normal Inspection Extremities: Nontender, No edema Skin: Normal color, No rash. Negative for: Cyanosis, Diaphoresis, Jaundice, No Trauma Neurological: Cranial nerves II-XII grossly intact, Normal Strength, Normal Sensation, Normal DTR - There is no clonus or Babinski sign.. Negative for: Alert, Oriented x3 Psychological: - - Affect is flat. Diagnostic/Tx/Re-eval Laboratory Results 12/13/19 12/13/19 10:30 10:30 WBC 8.1 RBC 4.19 L Hgb 12.4 Hct 37.5 MCV 89.5 MCH 29.6 MCHC 33.1 RDW Std Deviation 42.7 RDW Coeff of Edward 13.2 Plt Count 233 MPV 9.2 Immature Gran % (Auto) 0.200 Neut % (Auto) 69.6 Lymph % (Auto) 21.3 Benzie % (Auto) 7.4 Eos % (Auto) 1.0 Baso % (Auto) 0.5 Absolute Neuts (auto) 5.6 Absolute Lymphs (auto) 1.73 Nucleated RBC % 0 Sodium 137 Potassium 3.7 Chloride 102 Carbon Dioxide 27.0 Anion Gap 8 BUN 13 Creatinine 0.77 Estim Creat Clear Calc 41.72 Est GFR (MDRD) Af Amer 93 Est GFR (MDRD) Non-Af 77 BUN/Creatinine Ratio 16.8 Glucose 144 H Calcium 8.2 L Daughter was informed of results. She has had no ectopy during her ED stay. Plan is to discharge to home. - EKG Initial EKG Interpretation: Sinus Rhythm - Anus rhythm ventricular rate of 60. DC interval 154 ms. QRS duration 80 ms. QT duration 478 ms. [place] is normal. EKG is normal. - Medical Decision Making History provided suspect patient had a vasovagal episode. Since patient is unable to contribute will obtain CBC to assess for anemia and white count. Electrolyte panel was obtained to assess renal function, glucose, anion gap. EKG was obtained and is normal. ED Disposition - Plan for ED Patient: Disposition: Home or Assisted Living Diagnosis: Vasovagal syncope Instructions: ED VAGAL SYNCOPE Referrals: Tien Roldan MD [Primary Care Provider] - As Needed
[2019-12-13 11:49] VITALS: BP 122/66; PULSE 70; RESP 20; O2SAT 97
== END 2019-12-13 11:56 | disposition home or self-care (01) ==
PROVIDERS: Emergency Provider Emergency Medicine; PCP Family Medicine
DX: R55 Syncope and collapse (principal); I10 Essential (primary) hypertension; G30.9 Alzheimer's disease, unspecified; F02.80 Dementia in other diseases classified elsewhere, unspecified severity, without behavioral disturbance, psychotic disturbance, mood disturbance, and anxiety
CPT/HCPCS: 80048; 85025; 93005; 99285

== ENCOUNTER 2020-07-02 14:21 | Emergency (ER) | payer MEDICARE, BC, SELFPAY ==
[2020-07-02 14:23] VITALS: BP 138/84; PULSE 69; RESP 14; TEMP 36.2; O2SAT 97; BMI 19.5
--- NOTE | 2020-07-02 14:35 | ED.VISSUMM ---
- ER Visit Summary Date of Service: 07/02/20 Chief Complaint: [Abnormal mass in vagina] History of Present Illness: The patient is a 79 F [presents to the emergency department with abnormal tissue hanging from the vagina. Patient does not give history as she has history of severe dementia and the history comes from the patient's daughter. The daughter states that she was bathing her mother yesterday and noted that something was hanging out of the vagina. Patient has not had any difficulty urinating or having bowel movements. Patient's daughter wanted to have the patient evaluated. Patient really denies any pain. Patient has history of hypertension and history of dementia. Patient does not have an ORACLE TECHNICAL DEVELOPER.] Physical Examination: [HEENT-PERRLA, EOMI. Cranial nerves II through XII grossly intact. TMs clear. Mucous membranes moist. No adenopathy. Cardiovascular-regular rate and rhythm without murmur or ectopy Lungs-clear to auscultation, chest wall stable without crepitus or subcu emphysema Abdomen-normoactive bowel sounds, soft, nontender, no rebound or rigidity, no peritoneal signs. exam-on inspection patient is noted to have the cervix and uterus extruding from the vagina. I was able to easily reduce the cervix back into the vagina along with the uterus. Exam was nontender. Normal color of tissue noted. Extremities-intact ?4, normal range of motion, normal pulses, atraumatic] Test Results: [Indicated] Emergency Department Course and Treatment: [Case was discussed with ORACLE TECHNICAL DEVELOPER on-call Dr. Elton Whitlock who will be happy to see patient in the office for follow-up and to discuss treatment options.] Treatment Plan: [Patient to follow-up with ORACLE TECHNICAL DEVELOPER on-call.] Disposition: [Discharged home in stable condition] Impression: [Uterine/cervical prolapse] This note was generated with [employer] software. It may contain incorrect words, spelling, and punctuation that were not noted in review of the chart prior to signing ED Disposition - Plan for ED Patient: Referrals: Gabino Westbrook MD [Primary Care Provider] -
--- NOTE | 2020-07-02 14:46 | ED.DEP ---
ED Disposition - Plan for ED Patient: Instructions: Pelvic Organ Prolapse: Nonsurgical Treatment Referrals: Gabino Westbrook MD [Primary Care Provider] - Elton Whitlock MD [STAFF PHYSICIAN] - 3-5 Days
== END 2020-07-02 15:10 | disposition home or self-care (01) ==
LOC: ED 15:01
PROVIDERS: Emergency Provider Emergency Medicine; PCP Internal Medicine
DX: N81.2 Incomplete uterovaginal prolapse (principal); I10 Essential (primary) hypertension; F03.90 Unspecified dementia, unspecified severity, without behavioral disturbance, psychotic disturbance, mood disturbance, and anxiety; Z79.899 Other long term (current) drug therapy
CPT/HCPCS: 99282

== ENCOUNTER 2020-12-04 11:37 | Emergency (ER) | payer MEDICARE, BC, SELFPAY ==
[2020-12-04] VITALS (10 sets, daily range): BP systolic 145–159; BP diastolic 89–92; PULSE 87–116; RESP 14–20; TEMP 36.7–37.2; O2SAT 95–96
--- NOTE | 2020-12-04 11:57 | CT_ITS ---
STUDY: CT BRAIN WITHOUT CONTRAST REASON FOR EXAM: Female, 79 years old. Change in Mental Status RADIATION DOSAGE (If Supplied By Facility): CTDIvol = ( 44.99 ) mGy, DLP = ( 1558.47 ) mGycm TECHNIQUE: Transaxial CT imaging of the brain was performed without administration of intravenous contrast material. Individualized dose optimization techniques were used for this CT. COMPARISON: 10/13/17 FINDINGS: Normal soft tissue structures. Normal calvarium. Moderate atrophy. Ischemic white matter changes. Normal basal ganglia and thalami. Normal brainstem. Normal cerebellum. There is no intracranial hemorrhage. There are no findings of an acute ischemic infarction. Normal visualized paranasal sinuses. CT/Brain/Head without Contrast IMPRESSION: Involutional changes. Electronically Signed: Juan Jose Collado MD at 12:46 EDT Tel , Service support ,
--- NOTE | 2020-12-04 11:57 | EKG12_ITS ---
Test Reason : Blood Pressure : / mmHG Vent. Rate : 102 BPM Atrial Rate : 102 BPM P-R Int : 136 ms QRS Dur : 074 ms QT Int : 362 ms P-R-T Axes : 018 -10 031 degrees QTc Int : 471 ms Sinus tachycardia with Premature atrial complexes Inferior infarct , age undetermined Abnormal ECG Confirmed by GUANACO DAMON, CARMEN ([id number]), floriculturist DEBBIE ARMAS ([id number]) on 12/07/2020 9:50:17 AM Referred By: JEANNETTE/ISHAAN Confirmed By:CARMEN BLANC MD
--- NOTE | 2020-12-04 11:58 | EX.ED.VIS.PS ---
HPI HPI - Psych History of Present Illness Chief Complaint: Mental Health Narrative Narrative: 71-year-old female referred by hospice for altered mental status. Patient has end-stage dementia and is currently in hospice for this. They have been trying different medications such as diazepam, oxycodone, trazodone, Seroquel. Patient has been more agitated and confused. Patient is not sleeping for the last couple of days. Her family states that she really only has history of high blood pressure and dementia. Patient has not had a fever. She not complaining of any pain. Her family states that she has had a couple of falls with no injuries noted. There has been no head injury that they note. Patient is not on any anticoagulation. [facility] Medical History (Updated 12/04/20 @ 12:09 by Leena Ruiz) Dementia Hypertension Home Medications metoprolol succinate 100 mg PO DAILY 10/13/17 [History Last Taken 10/13/17 08:00] diazepam 2 mg PO BID PRN 12/04/20 [History Last Taken Unknown] oxycodone 2.5 mg PO Q4H PRN 12/04/20 [History Last Taken Unknown] quetiapine 25 mg PO TID 12/04/20 [History Last Taken Unknown] sennosides-docusate sodium [Senna-S] 1 tab-cap PO QHS 12/04/20 [History Last Taken Unknown] trazodone 25 mg PO QHS 12/04/20 [History Last Taken Unknown] Allergy/AdvReac Type Severity Reaction Status Date / Time lorazepam [From Ativan] AdvReac Other Verified 12/04/20 13:01 Social History Smoking Status: Unknown if ever smoked ROS ROS ED Review of Systems ROS Unobtainable: due to mental condition and due to mental status EXAM Physical Exam Const Vital Signs: 12/04/20 11:38 12/04/20 13:00 12/04/20 14:00 Temperature 98.1 F Temperature Source Temporal Pulse Rate 115 H 106 H Respiratory Rate 16 18 18 Blood Pressure 145/92 H Blood Pressure Mean 109 Pulse Ox 96 96 Oxygen Delivery Method Room Air Room Air 12/04/20 15:00 12/04/20 16:00 12/04/20 18:00 Temperature 98.9 F Temperature Source Temporal Pulse Rate 116 H Respiratory Rate 20 H 16 18 Blood Pressure 159/89 H Blood Pressure Mean 112 Pulse Ox 96 Oxygen Delivery Method Room Air 12/04/20 19:00 Temperature Temperature Source Pulse Rate Respiratory Rate 16 Blood Pressure Blood Pressure Mean Pulse Ox Oxygen Delivery Method Positive well nourished General Appearance ED: NAD; Negative for pallor HEENT Reports moist mucous membranes normocephalic and atraumatic Eyes PERRL and EOMs intact bilaterally General Eye ED: Negative for pale conjunctiva or scleral icterus Resp normal respiratory effort and clear to auscultation bilaterally Cardio Rate: regular rate Rhythm: regular rhythm GI non-tender and non-distended Palpation: soft Neuro CN's II-XII intact bilaterally Sensorium / Orientation: alert and confused; Negative for oriented to place or oriented to time Psych Appearance: grossly normal and well kempt Memory / Cognition: dementia Skin no rashes or lesions noted and no wounds General Skin Exam: Negative for jaundice or pallor Lesions: no lesions Rashes: no rashes MDM MDM MDM Narrative Medical decision making narrative: Patient presenting with increased agitation. She has end-stage dementia and is currently at a longterm but they are unable to control her even with hospice helping. Patient currently on Seroquel, trazodone, diazepam and is not sleeping and is increasingly agitated. Blood work done today is normal. Urinalysis is negative for infection. Chest x-ray on my interpretation shows no acute cardiopulmonary process and the radiologist does agree. EKG shows sinus tachycardia with a ventricular rate of 102 bpm without signs of ST elevation, depression, dysrhythmia on my interpretation. CT brain interpreted by the radiologist shows no acute cranial process. On top of the patient's Seroquel, diazepam, trazodone patient was given 2 doses of 3 mg of Haldol, Benadryl, Geodon. Patient is still agitated but is more controlled. Patient is currently awaiting placement after being evaluated by the counseling center. Patient will be signed out to incoming ED for monitoring until transfer. Impression: 1. History of end-stage dementia 2. Agitation 3. Yamilet Lab Data Attestation: I reviewed the patient's lab results. Labs: Laboratory Results - last 24 hr 12/04/20 12/04/20 12/04/20 11:33 11:33 11:33 WBC 8.0 RBC 4.55 Hgb 13.4 Hct 40.5 MCV 89.0 MCH 29.5 MCHC 33.1 RDW Std Deviation 43.8 RDW Coeff of Edward 13.4 Plt Count 293 MPV 9.4 Immature Gran % (Auto) 0.400 Neut % (Auto) 68.5 Lymph % (Auto) 15.7 L Sutter % (Auto) 13.3 H Eos % (Auto) 1.7 Baso % (Auto) 0.4 Absolute Neuts (auto) 5.5 Absolute Lymphs (auto) 1.26 Nucleated RBC % 0 Sodium 136 Potassium 3.8 Chloride 103 Carbon Dioxide 25.0 Anion Gap 8 BUN 6 L Creatinine 0.61 Estim Creat Clear Calc 0.00 Est GFR (MDRD) Af Amer 122 Est GFR (MDRD) Non-Af 101 BUN/Creatinine Ratio 9.9 L Glucose 110 H Calcium 8.7 Total Bilirubin 0.60 AST 28 ALT 33 Alkaline Phosphatase 106 Total Protein 7.3 Albumin 3.3 Globulin 4.0 Albumin/Globulin Ratio 0.8 L Urine Color Urine Clarity Urine pH Ur Specific Tollhouse Urine Protein Urine Glucose (UA) Urine Ketones Urine Occult Blood Urine Nitrite Urine Bilirubin Urine Urobilinogen Ur Leukocyte Esterase Urine RBC Urine WBC Ur Squamous Epith Cells Ur Transition Epith Cell Urine Bacteria Urine Mucus Urine Opiates Screen Urine Methadone Screen Ur Barbiturates Screen Ur Phencyclidine Scrn Ur Amphetamines Screen U Methamphetamin-MDMA U Benzodiazepines Scrn Urine Cocaine Screen U Cannabinoids Screen Ur Drug Screen Comment Ethyl Alcohol 3.0 12/04/20 12/04/20 13:45 13:45 WBC RBC Hgb Hct MCV MCH MCHC RDW Std Deviation RDW Coeff of Edward Plt Count MPV Immature Gran % (Auto) Neut % (Auto) Lymph % (Auto) Sutter % (Auto) Eos % (Auto) Baso % (Auto) Absolute Neuts (auto) Absolute Lymphs (auto) Nucleated RBC % Sodium Potassium Chloride Carbon Dioxide Anion Gap BUN Creatinine Estim Creat Clear Calc Est GFR (MDRD) Af Amer Est GFR (MDRD) Non-Af BUN/Creatinine Ratio Glucose Calcium Total Bilirubin AST ALT Alkaline Phosphatase Total Protein Albumin Globulin Albumin/Globulin Ratio Urine Color Yellow Urine Clarity Sl. Cloudy Urine pH 8.0 Ur Specific Tollhouse 1.010 Urine Protein Negative Urine Glucose (UA) Normal Urine Ketones Negative Urine Occult Blood 25 H Urine Nitrite Negative Urine Bilirubin Negative Urine Urobilinogen 1 H Ur Leukocyte Esterase 500 H Urine RBC 0 SEEN Urine WBC 10-25 SEEN Ur Squamous Epith Cells 0-5 SEEN Ur Transition Epith Cell 0-5 SEEN Urine Bacteria 1+ Urine Mucus 0 SEEN Urine Opiates Screen NEGATIVE Urine Methadone Screen NEGATIVE Ur Barbiturates Screen NEGATIVE Ur Phencyclidine Scrn NEGATIVE Ur Amphetamines Screen NEGATIVE U Methamphetamin-MDMA NEGATIVE U Benzodiazepines Scrn POSITIVE H Urine Cocaine Screen NEGATIVE U Cannabinoids Screen NEGATIVE Ur Drug Screen Comment Ethyl Alcohol Radiography Diagnostic Testing: Radiology Impression Brain CT 12/04/20 11:57 IMPRESSION: Involutional changes. Electronically Signed: Juan Jose Collado MD at 12:46 EDT Tel , Service support , Chest X-Ray 12/04/20 12:25 IMPRESSION: Normal x-ray examination of the chest. Electronically Signed: Juan Jose Collado MD at 13:06 EDT Tel , Service support , Discharge Plan Triage Chief Complaint: Mental Health ED Provider: Levon Sellers Dx/Rx/DC Orders Prescriptions: No Action metoprolol succinate 50 MG tablet 100 mg PO DAILY RF: 0 trazodone 50 mg Tablet 25 mg PO QHS RF: 0 sennosides-docusate sodium [Senna-S] 8.6-50 mg Tablet 1 tab-cap PO QHS RF: 0 diazepam 2 mg Tablet 2 mg PO BID PRN (Reason: anixety) RF: 0 oxycodone 5 mg Capsule 2.5 mg PO Q4H PRN (Reason: Pain) RF: 0 quetiapine 25 mg tablet 25 mg PO TID RF: 0 Primary Care Provider: Gabino Westbrook
[2020-12-04] MEDS: Ziprasidone IM 20 MG/ML VIAL IM (12:11)
--- NOTE | 2020-12-04 12:25 | RAD_ITS ---
STUDY: X-RAY CHEST REASON FOR EXAM: Female, 79 years old. Altered mental status TECHNIQUE: Portable AP view COMPARISON: 10/13/17 FINDINGS: The lungs are clear and expanded. There is no demonstrated pleural abnormality. Normal size heart. Normal mediastinum and emily. Normal visualized pulmonary arteries. Normal visualized aortic arch and descending thoracic aorta. Normal visualized thoracic spine. Normal visualized ribs, clavicles, and shoulders. There is no demonstrated abnormality of the visualized soft tissue structures of the upper abdomen. RAD/Chest 1 View (Portable) IMPRESSION: Normal x-ray examination of the chest. Electronically Signed: Juan Jose Collado MD at 13:06 EDT Tel , Service support ,
--- NOTE | 2020-12-04 12:39 | ED.RN ---
pt remains very agitated and training to get out of bed. Dr Sellers notififed.
[2020-12-04 12:49] LABS: Absolute Lymphocyte Count 1.26 X10^3/uL (0.83-4.51); Absolute Neutrophil Count 5.5 X10^3/uL (2.0-7.7); Basophil# 0.03 X10^3/uL; Basophil% 0.4 % (0-1); Eosinophil# 0.14 X10^3/uL; Eosinophils% 1.7 % (0-5); Hematocrit 40.5 % (37-47); Hemoglobin 13.4 g/dL (12.0-15.0); Lymphocyte # 1.26 X10^3/ul (0.83-4.51); Lymphocyte % 15.7 % (19-41); Mean Corp Hgb Conc 33.1 g/dL (32-36); Mean Corpuscular Hgb 29.5 pg (27.0-32.0); Mean Platelet Vol. 9.4 fl (6.2-12.0); Monocyte# 1.07 X10^3/uL; Monocyte% 13.3 % (0-10); NRBC Flagged by Analyzer 0 % (0-5); Neutrophil # 5.51 X10^3/uL (2.7-7.7); Neutrophil % 68.5 % (47-70); Platelet Count 293 K/mm3 (150-450); RBC Distribution Width CV 13.4 % (11.6-14.6); RBC Distribution Width SD 43.8 fl (35.1-43.9); Red Blood Count 4.55 M/mm3 (4.2-5.4)
[2020-12-04 12:50] LABS: ALB/GLOB Ratio 0.8 RATIO (0.9-2.4); AST(SGOT) 28 U/L (15-37); Alanine Aminotransfer ALT/SGPT 33 U/L (13-56); Albumin, Serum 3.3 g/dL (3.2-5.0); Alkaline Phosphatase 106 U/L (45-117); Anion Gap 8 (5-15); BUN 6 mg/dL (7-18); BUN/Creat Ratio 9.9 RATIO (10-20); Calcium,Total 8.7 mg/dL (8.5-10.1); Chloride 103 mmol/L (98-107); Creatinine, Serum 0.61 mg/dL (0.55-1.02); EST Glomerular Filtration Rate 101 mL/min (>60); Est Glom Filt Rate - Afr Amer 122 mL/min (>60); Glucose 110 mg/dL (74-106); Potassium 3.8 mmol/L (3.5-5.1); Protein, Total 7.3 g/dL (6.4-8.2); Sodium Level 136 mmol/L (136-145)
[2020-12-04] MEDS: DiphenhydrAMINE 50 MG/ML Syringe 25 MG IV (12:50)
[2020-12-04] MEDS: Haloperidol Lactate 5 MG/ML Vial 3 MG IV ×2 (12:50→16:06)
[2020-12-04 13:57] LABS: Mucous, Urine 0 SEEN /hpf (<or=2+); Red Blood Cells-Urine 0 SEEN /hpf (0-5)
[2020-12-04 13:59] LABS: Color, Urine Yellow (Yellow); Glucose, Dipstick Normal (Normal); Ketone-Dipstick Negative (Negative); Leukocyte Esterase-Dipstick 500 /ul (Negative); Nitrite-Dipstick Negative (Negative); Occult Blood-Urine 25 /ul (Negative); Protein-Dipstick Negative (Negative); Urine Bilirubin Dipstick Negative (Negative); Urine Clarity Sl. Cloudy (Clear); Urine Urobilinogen 1 mg/dl (Normal)
[2020-12-04 14:06] LABS: Bacteria 1+ /hpf (None Seen); Squamous Epithelial Cells - UA 0-5 SEEN /hpf (5-10); Transitional Epithelial - Ur 0-5 SEEN /hpf (0-5); White Blood Cells 10-25 SEEN /hpf (0-5)
[2020-12-04 14:17] LABS: Amphetamine Urine VISTA NEGATIVE (<1000 ng/mL); Barbiturate Urine VISTA NEGATIVE (< 200 ng/mL); Benzodiazepine Urine VISTA POSITIVE (< 200 ng/mL); Cocaine Urine VISTA NEGATIVE (< 300 ng/mL); Ecstacy Urine VISTA NEGATIVE (< 500 ng/mL); Methadone Urine VISTA NEGATIVE (< 300 ng/mL); PCP Urine VISTA NEGATIVE (< 25 ng/mL); THC Urine VISTA NEGATIVE (< 50 ng/mL); Vista UDS pH Range 8
--- NOTE | 2020-12-04 14:19 | NURSING ---
CALLED [facility]. [facility] WILL BE CALLING BACK
--- NOTE | 2020-12-04 14:26 | NURSING ---
FAXED CHART TO [facility]
--- NOTE | 2020-12-04 14:55 | NURSING ---
[facility] IN ER
[2020-12-04] MEDS: Metoprolol(XL)Succ 100 MG Tablet PO (20:32)
[2020-12-04] MEDS: Senna/Docusate Sodium 1 Tablet PO (20:32)
[2020-12-04] MEDS: QUEtiapine 25 MG Tablet PO (20:32)
[2020-12-04] MEDS: traZODone 50 MG Tablet 25 MG PO (20:33)
--- NOTE | 2020-12-04 20:45 | NURSING ---
ACCEPTED TO [facility] BUT WILL NOT GO UNTIL MORNING. THEY WILL SEND THEIR OWN TRANSPORT.
[2020-12-04] MEDS: diazePAM 2 MG Tablet PO (21:12)
[2020-12-05] VITALS (11 sets, daily range): BP systolic 147; BP diastolic 82; PULSE 66–84; RESP 14–18; O2SAT 96–99
[2020-12-05] MEDS: diazePAM 2 MG Tablet PO ×3 (03:05→10:39)
== END 2020-12-05 13:49 ==
PROVIDERS: Emergency Provider Student in an Organized Health Care Education/Training Program; PCP Internal Medicine
DX: R45.1 Restlessness and agitation (principal); F03.90 Unspecified dementia, unspecified severity, without behavioral disturbance, psychotic disturbance, mood disturbance, and anxiety; F30.9 Manic episode, unspecified; I10 Essential (primary) hypertension; Z79.899 Other long term (current) drug therapy
CPT/HCPCS: 70450; 71045; 80053; 80307; 81001; 82077; 85025; 87426; 93005; 96372; 96374; 96375; 96376; 99285; P9612; A4216; J3486